=== PATIENT | female | born 1985 | race Caucasian/White ===

== ENCOUNTER 2018-05-15 17:35 | Emergency (ER) | payer OTHER, MEDICAID, SELFPAY ==
[2018-05-15 17:57] VITALS: BP 126/93; PULSE 100; RESP 18; TEMP 36.5; O2SAT 100
[2018-05-15 18:56] VITALS: BP 118/76; PULSE 92; RESP 16; TEMP 36.4; O2SAT 100
--- NOTE | 2018-05-15 19:15 | ED.FEMALEGU ---
HPI - Female Genitourinary General Chief complaint: Urogenital-Female Stated complaint: IUD STRINGS MISSING, SHARP PAIN, SOAKING PADS MORE Time Seen by Provider: 05/15/18 18:49 Source: patient Mode of arrival: ambulatory Limitations: no limitations History of Present Illness HPI Narrative: Patient is a 32-year-old female who presents with vaginal bleeding. She has an IUD and she had a small menstrual cycle last week for about 4 days. She had a 3 day break and then has had quite a heavy bleeding for the last 3 days. She has been going through more than 1 pad an hour since yesterday. She had intense pain today. She feels as though her IUD may be gone. He is also having some diarrhea which she attributes to [employer]. No vomiting. She denies any dizziness lightheadedness or shortness of breath. Related Data Home Medications Medication Instructions Recorded Confirmed aspirin 325 mg PO PRN PRN #0 07/21/17 etonogestrel-ethinyl estradiol 1 icr VAGINAL #0 07/21/17 [NuvaRing] ibuprofen 200 mg PO PRN PRN #0 07/21/17 Allergies Allergy/AdvReac Type Severity Reaction Status Date / Time Penicillins [PENICILLINS] Allergy Unknown Unverified 01/27/18 12:47 Review of Systems Review of Systems All systems reviewed & are unremarkable except as noted in HPI and below Constitutional Denies chills, Denies fever(s), Denies lethargy and Denies weakness Cardiovascular Denies chest pain, Denies syncope, Denies lightheadedness, Denies dyspnea and Denies dyspnea on exertion Respiratory Denies cough, Denies dyspnea and Denies dyspnea on exertion Gastrointestinal Gastrointestinal: Reports abdominal pain, Reports loose stools and Denies vomiting Genitourinary Reports system reviewed and no additional complaints, except as docu and Reports as per HPI Musculoskeletal Denies back pain, Denies muscle weakness, Denies numbness and Denies tingling Integumentary/Breasts Denies pruritus, Denies erythema, Denies rash and Denies wounds Neurologic Denies syncope, Denies numbness, Denies tingling and Denies weakness [facility] Social History Smoking Status: Never smoker Exam Initial Vital Signs Initial Vital Signs: Vital Signs Temperature 97.7 F 05/15/18 17:57 Pulse Rate 100 H 05/15/18 17:57 Respiratory Rate 18 05/15/18 17:57 Blood Pressure 126/93 H 05/15/18 17:57 Pulse Oximetry 100 05/15/18 17:57 Const General: cooperative and well developed Nutritional Appearance: well nourished Orientation: alert, awake, oriented x3 and not confused Chest Chest: normal inspection of the chest Resp Effort & Inspection: normal respiratory effort Auscultation: clear to auscultation bilaterally, no rales, no rhonchi and no wheezes Cardio Palpation: normal PMI Rate: regular rate Rhythm: regular rhythm Heart Sounds: S1 normal and S2 normal GI Palpation: soft, No firm, No guarding, No rigid and tender (lower abdomen) External Female Exam: external appearance normal Speculum Exam - Vagina: not erythematous, no foreign bodies, vaginal bleeding and nontender Speculum Exam - Cervix: cervical os open (No foreign body no string) and nontender Bimanual Exam- Vagina & Uterus: No cervical tenderness Bimanual Exam- Adnexa, other: normal adnexae and no adnexal masses OB/External & Speculum: no foreign bodies, cervical os open (No foreign body no string) and vaginal bleeding Course Orders Ordered: ED Orders 05/15/18 19:17 XR pelvis 1-2V Stat Vital Signs - 8 hr 05/15/18 17:57 05/15/18 18:56 05/15/18 20:18 Temperature 97.7 F 97.6 F Pulse Rate 100 H 92 H 77 Respiratory Rate 18 16 16 Blood Pressure 126/93 H Blood Pressure [Left Arm] 118/76 138/85 H Pulse Oximetry 100 100 100 MDM - Female Genitourinary Lab Data Attestation: I reviewed the patient's lab results. POC HCG neg POC UA + blood see nursing notes Imaging Data XR pelvis: Radiologist's impression: PROCEDURE: XR PELVIS 1-2V INDICATIONS: IUD placement TECHNIQUE: Single view(s) of the pelvis acquired. COMPARISON: None. FINDINGS: Bones: No fractures or dislocations. No suspicious bony lesions. Soft tissues: Visualized bowel gas pattern is normal. No suspicious soft tissue calcifications. There is no IUD visualized within the pelvis. IMPRESSION: No IUD visualized within the pelvis. Dictated by: Breanna Akers M.D. on 05/15/2018 at 19:39 MDM Narrative Medical decision making narrative: Patient's IUD is no longer visible. She thinks bleeding has actually slowed down a little bit. She has appointment with all her PCP for an IUD followup all in 2 days. The IUD was just placed in March. She is feeling better. Discharge Plan Departure Patient Disposition: Home, Self-Care Clinical Impression: Vaginal bleeding Discharge Date/Time: 05/15/18 20:23 Interventions: ED Discharge Assessment Last Done: 05/15/18 20:21 Instructions: DI for Intrauterine Device Removal Activity Restrictions/Additional Instructions: *You have been diagnosed with vaginal bleeding *What to do: Increased bleeding likely from IUD passage. The bleeding should start to slow down. *Continue to take medications as directed *Follow up with your primary care provider in 2-3 days *Return to ER if you should have persistent ongoing severe vaginal bleeding going through more than 1 pad an hour. Increased pain, lightheaded this, dizziness heart palpitations or any new, worsening or concerning symptoms Prescriptions: No Action ibuprofen 200 MG tablet 200 mg PO PRN PRNQty: 0 RF: 0 etonogestrel-ethinyl estradiol [NuvaRing] 1 EACH ring 1 icr Vaginal Qty: 0 RF: 0 aspirin 325 MG tablet 325 mg PO PRN PRNQty: 0 RF: 0 Referrals: Trena Calle ARNP [Primary Care Provider] -
[2018-05-15 20:18] VITALS: BP 138/85; PULSE 77; RESP 16; O2SAT 100
== END 2018-05-15 20:23 | disposition home or self-care (01) ==
PROVIDERS: Emergency Provider Emergency Medicine; PCP Nurse Practitioner Family
DX: N93.9 Abnormal uterine and vaginal bleeding, unspecified (principal)
CPT/HCPCS: 72170; 81003; 81025; 99282; 99284

== ENCOUNTER → 2018-05-31 11:49 | Outpatient (CLI) | payer OTHER, MEDICAID, SELFPAY ==
--- NOTE | 2018-05-31 | DI.US.S_ITS ---
PROCEDURE: US PELVIC COMPLETE INDICATIONS: PELVIC PAIN TECHNIQUE: Real-time scanning was performed of the pelvic organs, with image documentation. Additional endovaginal scanning was necessary due to incomplete visualization of the adnexal and endometrial structures by transabdominal scanning. COMPARISON: None. FINDINGS: Transabdominal scanning: Limited scanning through the kidneys shows no hydronephrosis. The kidneys measure 11.4 CM right and 12.4 CM left. No pathologic free abdominal or pelvic fluid. Endovaginal scanning: Uterus: Uterus is mildly enlarged in size at 5.0 x 6.8 x 10.1 cm. The endometrium measures 22.8 mm in combined thickness. No focal endometrial mass lesions identified, possible hyperplasia. Ovaries: Ovaries appear normal measuring 15 x 18 x 22 mm right and 19 x 27 x 33 mm left. IMPRESSION: 1. Thickened endometrium is suspect for endometrial hyperplasia. 2. Normal ovaries. Dictated by: Valerio Bailey M.D. on 05/31/2018 at 12:46 Approved by: Valerio Bailey M.D. on 05/31/2018 at 12:51
== END ==
PROVIDERS: PCP Nurse Practitioner Family; Visit Provider Nurse Practitioner Family
DX: R10.2 Pelvic and perineal pain (principal); R93.8 Abnormal findings on diagnostic imaging of other specified body structures
CPT/HCPCS: 76830; 76856

== ENCOUNTER 2018-10-11 22:04 | Emergency (ER) | payer OTHER, MEDICAID, SELFPAY ==
[2018-10-11 22:10] VITALS: BP 146/75; PULSE 102; RESP 20; TEMP 36.9; O2SAT 100
--- NOTE | 2018-10-11 22:31 | DI.RAD.S_ITS ---
PROCEDURE: XR CHEST 1V INDICATIONS: cough, back pain TECHNIQUE: One view of the chest was acquired. COMPARISON: [facility], , CHEST 1 VIEW, 06/22/2017, 12:39. FINDINGS: Surgical changes and devices: None. Lungs and pleura: No pleural effusions or pneumothorax. Lungs are clear. Mediastinum: Mediastinal contours appear normal. Heart size is normal. Bones and chest wall: No suspicious bony lesions. Overlying soft tissues appear unremarkable. IMPRESSION: No acute cardiopulmonary pathology. Dictated by: Gurpreet Thompson M.D. on 10/12/2018 at 9:20 Approved by: Gurpreet Thompson M.D. on 10/12/2018 at 9:20
[2018-10-11 22:39] VITALS: BP 129/70; PULSE 91; RESP 14; O2SAT 100
[2018-10-11 22:39] LABS: Add Manual Diff / Slide Review NO; Basophils Percent Auto 0.3 % (0-2); Eosinophils Percent Auto 1.1 % (2-4); Hematocrit 40.3 % (36-46); Hemoglobin 13.7 g/dL (12.0-16.0); Lymphocytes Percent Auto 36.9 % (25-40); Mean Corpuscular HGB Conc 33.9 % (30-36); Mean Corpuscular Hemoglobin 30.3 PG (26-34); Mean Corpuscular Volume 89.2 fL (80-100); Monocytes Percent Auto 6.9 % (3-14); Neutrophils Absolute Auto 4400 /uL (1500-7000); Neutrophils Percent Auto 54.8 % (50-75); Platelet Count 317 X10^3/uL (150-400); Red Blood Cell Count 4.51 X10^6/uL (4.0-5.2); Red Cell Distribution Width 13.8 % (11.6-14.8)
[2018-10-11 22:43] LABS: Alanine Aminotransferase 21 IU/L (9-52); Albumin 4.4 g/dL (3.5-5.0); Albumin Globulin Ratio 1.3 (1.0-2.8); Alkaline Phosphatase 85 U/L (38-126); Aspartate Aminotransferase 26 IU/L (14-36); BUN Creatinine Ratio 21.4 (6-22); Bilirubin Total 0.3 mg/dL (0.2-1.3); Blood Urea Nitrogen 15 mg/dL (7-17); Calcium 9.5 mg/dL (8.4-10.2); Carbon Dioxide 24 mmol/L (22-32); Chloride 106 mmol/L (98-107); Estimated Glomerular Filt Rate > 60.0 mL/min (>60); Globulin 3.4 g/dL (1.7-4.1); Glucose 125 mg/dL (70-100); HEMOLYSIS < 15 (0-50); Potassium 3.6 mmol/L (3.4-5.1); Sodium 144 mmol/L (137-145); Total Protein 7.8 g/dL (6.3-8.2)
[2018-10-11 22:56] LABS: Troponin I < 0.012 ng/mL (0.01-0.034)
--- NOTE | 2018-10-11 23:02 | ED_ITS ---
HPI - General Adult General Chief complaint: Extremity Injury, Upper Stated complaint: states right arm numb,cough Time Seen by Provider: 10/11/18 22:43 Source: patient Mode of arrival: ambulatory Limitations: no limitations History of Present Illness HPI narrative: This is a 33-year-old female comes to the emergency department with complaint of is not feeling well for the last 3 days. She has felt just sort of under the weather, she has had mild cough that is been nonproductive. She has not really had any chest pain or pressure or shortness of breath. She has felt some discomfort kind of in her back and radiating down her left arm more to the shoulder. It does not really go all the way down her arm. No weakness or numbness. Patient has not really had a lot of nasal congestion or sinus pressure. She has felt a little nauseated but not had any vomiting. No diarrhea or constipation, no new urinary symptoms no urgency frequency or dysuria. No vaginal bleeding or discharge. She states a couple days ago she had some pain in her pelvic area but none today. Patient states she does not have any other medical issues other than a dermoid cyst. She is supposed to follow up with Dr. Silva to have this removed. She has had her gallbladder out. Patient denies any illicit drugs. She does state, occasional alcohol. She has had a recent sick contact to have a viral bronchitis. Related Data Home Medications Medication Instructions Recorded Confirmed aspirin 325 mg PO PRN PRN #0 07/21/17 etonogestrel-ethinyl estradiol 1 icr VAGINAL #0 07/21/17 [NuvaRing] ibuprofen 200 mg PO PRN PRN #0 07/21/17 Allergies Allergy/AdvReac Type Severity Reaction Status Date / Time Penicillins [PENICILLINS] Allergy Unknown Unverified 01/27/18 12:47 Review of Systems Review of Systems All systems reviewed & are unremarkable except as noted in HPI and below Constitutional Denies chills, Reports fatigue, Denies fever(s), Denies headache(s), Denies lethargy, Denies night sweats and Denies weakness ENT Ears, Nose, Mouth, and Throat: Reports as per HPI, Denies facial pain, Denies headache(s), Denies nasal congestion, Denies neck pain, Denies post nasal drip, Denies sinus pain, Denies sinus pressure and Denies sore throat Cardiovascular Denies chest pain, Denies diaphoresis, Denies syncope, Denies pedal edema, Denies edema, Denies irregular heart rhythm, Denies leg edema, Reports lightheadedness, Denies palpitations, Denies dyspnea, Denies dyspnea on exertion and Denies orthopnea Respiratory Denies change in phlegm color, Denies chest congestion, Reports cough, Denies hemoptysis, Denies excessive phlegm production, Denies pain on inspiration, Denies dyspnea, Denies dyspnea on exertion, Denies stridor and Denies wheezing Gastrointestinal Gastrointestinal: Denies abdominal pain, Denies change in bowel habits, Denies constipation, Denies diarrhea, Denies nausea and Denies vomiting Genitourinary Denies hematuria, Denies dysuria, Denies flank pain, Denies urinary incontinence and Denies urinary urgency Musculoskeletal Denies neck pain Integumentary/Breasts Denies rash Neurologic Denies syncope, Denies headache(s) and Denies weakness Endocrine Reports fatigue and Denies palpitations Allergic/Immunologic Denies wheezing PFSH Medical History Dermoid (Acute) Social History Smoking Status: Never smoker Exam Narrative Exam Narrative: GEN: Obese female, alert and oriented x 3, patient appears to be in mild distress. HEENT: Atraumatic, pupils are equal round reactive to light, extraocular movements are intact, nares are clear, TMs are clear with no fluid, there is no conjunctival pallor. Throat is clear without any exudates, erythema, tonsillar enlargement or uvular deviation HEART: Regular rate and rhythm without murmur, clicks, rubs. LUNGS:Lungs clear to auscultation, no wheezes, rales, crackles, chest moves symmetrically. Patient has some mild cough throughout evaluation and with deep inhalation. ABD:bowel sounds normal, soft, non-tender, no guarding, rebound, rigidity, no masses noted, no hepatosplenomegaly :No CVA tenderness MSCL: Non-tender, no muscle atrophy, muscles strength 5/5 upper and lower extremities, full range of motion. NEURO:CN 2-12 intact, sensation normal Initial Vital Signs Initial Vital Signs: Vital Signs Temperature 98.4 F 10/11/18 22:10 Pulse Rate 102 H 10/11/18 22:10 Respiratory Rate 20 10/11/18 22:10 Blood Pressure 146/75 H 10/11/18 22:10 Pulse Oximetry 100 10/11/18 22:10 Course Orders Ordered: ED Orders 10/11/18 22:09 EKG-12 Lead Stat 10/11/18 22:31 Chest [XR chest 1V] Stat 10/11/18 22:34 CBC [Complete Blood Count AUTO DIFF] Stat CMP [Comprehensive Metabolic Panel] Stat Trop I [Troponin I] Stat Discontinued Medications Sodium Chloride (Normal Saline 0.9%) 1,000 mls @ 1,000 mls/hr IV BOLUS ONE Stop: 10/12/18 00:05 Last Infusion: 10/12/18 00:07 Dose: 0 mls/hr Admin: 10/11/18 23:09 Dose: 1,000 mls/hr Vital Signs - 8 hr 10/11/18 22:10 10/11/18 22:39 10/11/18 23:58 Temperature 98.4 F Pulse Rate 102 H 91 H 82 Respiratory Rate 20 14 22 Blood Pressure 146/75 H Blood Pressure [Left Arm] 129/70 103/64 Pulse Oximetry 100 100 99 Medical Decision Making Lab Data Lab results reviewed: Yes I reviewed the patient's lab results. Result diagrams: 10/11/18 22:34 10/11/18 22:34 Lab Results 10/11/18 10/11/18 Range/Units 22:34 22:34 WBC 8.0 (4.5-11.0) X10^3/uL RBC 4.51 (4.0-5.2) X10^6/uL Hgb 13.7 (12.0-16.0) g/dL Hct 40.3 (36-46) % MCV 89.2 (80-100) fL MCH 30.3 (26-34) PG MCHC 33.9 (30-36) % RDW 13.8 (11.6-14.8) % Plt Count 317 (150-400) X10^3/uL Neut % (Auto) 54.8 (50-75) % Lymph % (Auto) 36.9 (25-40) % Wright % (Auto) 6.9 (3-14) % Eos % (Auto) 1.1 L (2-4) % Baso % (Auto) 0.3 (0-2) % Neut # (Auto) 4400 (1889-0450) /uL Sodium 144 (137-145) mmol/L Potassium 3.6 (3.4-5.1) mmol/L Chloride 106 (98-107) mmol/L Carbon Dioxide 24 (22-32) mmol/L BUN 15 (7-17) mg/dL Creatinine 0.70 (0.52-1.04) mg/dL Estimated GFR > 60.0 (>60) mL/min BUN/Creatinine Ratio 21.4 (6-22) Glucose 125 H (70-100) mg/dL Calcium 9.5 (8.4-10.2) mg/dL Total Bilirubin 0.3 (0.2-1.3) mg/dL AST 26 (14-36) IU/L ALT 21 (9-52) IU/L Alkaline Phosphatase 85 (38-126) U/L Troponin I < 0.012 (0.01-0.034) ng/mL Total Protein 7.8 (6.3-8.2) g/dL Albumin 4.4 (3.5-5.0) g/dL Globulin 3.4 (1.7-4.1) g/dL Albumin/Globulin Ratio 1.3 (1.0-2.8) Point of Care Testing Test Results Negative Urine Dip Bedside Urine Glucose Negative Bedside Urine Bilirubin - Negative Bedside Urine Ketone - Negative Urine Specific Commerce 1.020 Bedside Urine Occult Blood - Negative Bedside Urine pH 6.0 Bedside Urine Protein - Negative Bedside Urine Urobilinogen - Negative Bedside Urine Nitrite - Negative Bedside Urine Leukocytes - Negative Esterase Point of care testing: Point of Care Testing Test Results Negative Urine Dip Bedside Urine Glucose Negative Bedside Urine Bilirubin - Negative Bedside Urine Ketone - Negative Urine Specific Commerce 1.020 Bedside Urine Occult Blood - Negative Bedside Urine pH 6.0 Bedside Urine Protein - Negative Bedside Urine Urobilinogen - Negative Bedside Urine Nitrite - Negative Bedside Urine Leukocytes - Negative Esterase Imaging Data Chest x-ray: Attestation: I personally reviewed and interpreted this imaging study as follows: My impression: No acute process, no infiltrate, no pulmonary edema. Normal alignment, no mediastinal widening. No pneumothorax. No fracture. ECG Data Attestation: I personally reviewed and interpreted this ECG as follows: Interpretation: Sinus rhythm with a rate of 95 P are interval of 142, QRS of 106 and QTC of 408. No significant ST changes appreciated MDM Narrative Medical decision making narrative: Patient has had some thoracic discomfort and left upper extremity discomfort. This started about 10:00 a.m. today and by time patient at present and she had almost 12 hr of constant symptoms. Patient' s EKG does not show any clear changes nor does her troponin. She has had a cough recently which I suspect she has a little bit of upper respiratory infection. Patient has not had any fevers, is likely viral in origin. This may or may not be related to the thoracic discomfort. Patient's lab work otherwise is fairly normal. No signs of . An urine does not show any signs of infection. Discussed findings with patient. She had some ibuprofen over the counter which was helpful for her symptoms. She can continue this. She is in between physicians and has a follow-up appointment set up but encouraged to call for earlier follow-up if symptoms are not resolved or return to the ER for re-evaluation. Discharge Plan Departure Patient Disposition: Home Clinical Impression: Back pain, thoracic, Cough, URI (upper respiratory infection) Discharge Date/Time: 10/12/18 00:14 Interventions: ED Discharge Assessment Last Done: 10/12/18 00:15 Instructions: DI for Thoracic Back Pain Activity Restrictions/Additional Instructions: Call to set up primary care follow-up in the next week if her symptoms are not improving. You may take Tylenol and/or ibuprofen as needed for discomfort in the back and arm. You may use [id number] cough medicine as needed. Return to the emergency department for fevers greater than 100.4, shortness of breath, chest pain or pressure, passing out, persistent vomiting, black or bloody stools or other new or concerning symptoms. Prescriptions: No Action ibuprofen 200 MG tablet 200 mg PO PRN PRNQty: 0 RF: 0 etonogestrel-ethinyl estradiol [NuvaRing] 1 EACH ring 1 icr Vaginal Qty: 0 RF: 0 aspirin 325 MG tablet 325 mg PO PRN PRNQty: 0 RF: 0 Referrals: Trena Calle ARNP [Primary Care Provider] -
[2018-10-11] MEDS: SODIUM CHLORIDE 0.9% 1,000 ML 1000 ML IV (23:09)
[2018-10-11 23:58] VITALS: BP 103/64; PULSE 82; RESP 22; O2SAT 99
== END 2018-10-12 00:14 | disposition home or self-care (01) ==
PROVIDERS: Emergency Provider Emergency Medicine; PCP Nurse Practitioner Family
DX: M54.6 Pain in thoracic spine (principal); J06.9 Acute upper respiratory infection, unspecified; R05 Cough
CPT/HCPCS: 71045; 80053; 81003; 81025; 84484; 85025; 93005; 96360; 99283; 99285

== ENCOUNTER 2018-10-17 01:44 | Emergency (ER) | payer OTHER, MEDICAID, SELFPAY ==
[2018-10-17 02:12] VITALS: BP 130/77; PULSE 89; RESP 18; TEMP 36.9; O2SAT 99
[2018-10-17 03:05] LABS: BUN Creatinine Ratio 13.8 (6-22); Blood Urea Nitrogen 11 mg/dL (7-17); Calcium 9.3 mg/dL (8.4-10.2); Carbon Dioxide 25 mmol/L (22-32); Chloride 105 mmol/L (98-107); Estimated Glomerular Filt Rate > 60.0 mL/min (>60); Glucose 118 mg/dL (70-100); HEMOLYSIS < 15 (0-50); Potassium 4.2 mmol/L (3.4-5.1); Sodium 140 mmol/L (137-145)
[2018-10-17] MEDS: CYCLOBENZAPRINE 10 MG PREPACK 1 BOTTLE MISC (03:20)
--- NOTE | 2018-10-17 03:21 | ED_ITS ---
HPI - Extremity Problem General Chief complaint: Extremity Problem,Nontraumatic Stated complaint: right thigh pain, waking her up Time Seen by Provider: 10/17/18 02:02 Source: patient and family Mode of arrival: ambulatory History of Present Illness HPI Narrative: 33-year-old female, nonsmoker presents to the emergency department with a chief complaint of episodes of right anterior thigh spasm over the course of the evening. She spent a significant time playing video games with her kids and noted this spasming. She denies any injury. She denies any provocation or palliation of her pain. She denies radiation. She denies any history of the same. She denies any recent illness. MD Complaint: extremity swelling Onset (ago): hour(s) Pain Consistency: intermittent Location: right Quality: stabbing Radiation: none Relieving factors: nothing Exacerbating factors: nothing Associated symptoms: denies other symptoms Related Data Home Medications Medication Instructions Recorded Confirmed aspirin 325 mg PO PRN PRN #0 07/21/17 etonogestrel-ethinyl estradiol 1 icr VAGINAL #0 07/21/17 [NuvaRing] ibuprofen 200 mg PO PRN PRN #0 07/21/17 Previous Rx's Medication Instructions Recorded cyclobenzaprine 10 mg PO TID PRN #14 tab 10/17/18 Allergies Allergy/AdvReac Type Severity Reaction Status Date / Time Penicillins [PENICILLINS] Allergy Unknown Unverified 01/27/18 12:47 Review of Systems Review of Systems All systems reviewed & are unremarkable except as noted in HPI and below Constitutional Denies chills, Denies fever(s), Denies lethargy and Denies weakness Eyes Denies change in vision, Denies eye discharge, Denies irritation and Denies loss of vision ENT Ears, Nose, Mouth, and Throat: Denies change in voice, Denies neck pain and Denies sore throat Cardiovascular Denies chest pain, Denies irregular heart rhythm, Denies lightheadedness, Denies palpitations, Denies dyspnea, Denies dyspnea on exertion and Denies orthopnea Respiratory Denies cough, Denies dyspnea, Denies dyspnea on exertion and Denies wheezing Gastrointestinal Gastrointestinal: Denies abdominal pain, Denies change in bowel habits, Denies diarrhea, Denies nausea and Denies vomiting Genitourinary Denies hematuria, Denies flank pain, Denies urinary incontinence and Denies urinary urgency Musculoskeletal Reports muscle cramps and Denies neck pain Integumentary/Breasts Denies pruritus, Denies erythema, Denies rash and Denies wounds Neurologic Denies confusion, Denies loss of vision and Denies weakness Psychiatric Denies anxiety, Denies confusion, Denies depression, Denies homicidal ideation and Denies suicidal ideation Endocrine Denies palpitations Hematologic/Lymphatic Denies easy bruising Allergic/Immunologic Denies wheezing PFSH Medical History Dermoid (Acute) Social History Smoking Status: Never smoker Exam Narrative Exam Narrative: GEN: AOx3 and in mild distress EYES: Pupils are equal, round, and reactive to light and accommodation. Extraoccular muscles are intact bilaterally. There is no subconjunctival hemorrhage or exudate. CHEST: Lungs are clear to auscultation bilaterally and free of wheezes, rales, or rhonchi. Heart rate is regular rhythm, there are no murmurs, clicks, rubs, or gallops. There is no chest wall tenderness. ABD: Abdomen is soft and nontender. There is no guarding or rebound. Bowel sounds are normal in all 4 quadrants. There is no mass or organomegaly. EXT: No swelling, erythema, warmth. Full painless ROM of all extremities with no loss of sensation or strength. SKIN: Warm, pink, and dry. No erythema or rash Initial Vital Signs Initial Vital Signs: Vital Signs Temperature 98.4 F 10/17/18 02:12 Pulse Rate 89 10/17/18 02:12 Respiratory Rate 18 10/17/18 02:12 Blood Pressure 130/77 10/17/18 02:12 Pulse Oximetry 99 10/17/18 02:12 Course Orders Ordered: ED Orders 10/17/18 02:44 Basic Metabolic Panel Stat Discontinued Medications Cyclobenzaprine HCl (Flexeril 10 Mg Prepack) 1 bottle MISC SEEINSTR ONE Stop: 10/17/18 03:12 Last Admin: 10/17/18 03:20 Dose: 1 bottle Vital Signs - 8 hr 10/17/18 02:12 10/17/18 03:25 Temperature 98.4 F Pulse Rate 89 92 H Respiratory Rate 18 18 Blood Pressure 130/77 128/73 Pulse Oximetry 99 98 MDM - Extremity (Nontraumatic) Lab Data Result diagrams: 10/17/18 02:44 Lab Results 10/17/18 Range/Units 02:44 Sodium 140 (137-145) mmol/L Potassium 4.2 (3.4-5.1) mmol/L Chloride 105 (98-107) mmol/L Carbon Dioxide 25 (22-32) mmol/L BUN 11 (7-17) mg/dL Creatinine 0.80 (0.52-1.04) mg/dL Estimated GFR > 60.0 (>60) mL/min BUN/Creatinine Ratio 13.8 (6-22) Glucose 118 H (70-100) mg/dL Calcium 9.3 (8.4-10.2) mg/dL [facility] Narrative Medical decision making narrative: DVT considered but thought less likely given lack of warmth, swelling, erythema or persistence Cellulitis considered but thought less likely given lack of warmth, swelling, erythema or persistence. Medication reaction considered but thought less likely given lack of persistent findings with her current medications Discharge Plan Departure Patient Disposition: Home Clinical Impression: Acute leg pain Discharge Date/Time: 10/17/18 03:25 Interventions: ED Discharge Assessment Last Done: 10/17/18 03:25 Instructions: DI for Leg Pain Activity Restrictions/Additional Instructions: *You have been diagnosed with [ right thigh spasm ] *What to do: *Take medications as directed *Follow up with your primary care provider in 2-3 days, call for an appointment. Let them know you were seen in the Emergency Department and that we ask that you be seen in follow up *Return to ER if you should have any new, worsening or concerning symptoms Prescriptions: New cyclobenzaprine 10 mg tablet 10 mg PO TID PRN (Reason: muscle spasm) Qty: 14 RF: 0 No Action ibuprofen 200 MG tablet 200 mg PO PRN PRNQty: 0 RF: 0 etonogestrel-ethinyl estradiol [NuvaRing] 1 EACH ring 1 icr Vaginal Qty: 0 RF: 0 aspirin 325 MG tablet 325 mg PO PRN PRNQty: 0 RF: 0 Referrals: Trena Calle ARNP [Primary Care Provider] -
[2018-10-17 03:25] VITALS: BP 128/73; PULSE 92; RESP 18; O2SAT 98
== END 2018-10-17 03:25 | disposition home or self-care (01) ==
PROVIDERS: Emergency Provider Emergency Medicine; PCP Nurse Practitioner Family
DX: M79.651 Pain in right thigh (principal)
CPT/HCPCS: 36415; 80048; 99282; 99283

== ENCOUNTER 2018-11-27 22:49 | Emergency (ER) | payer OTHER, MEDICAID, SELFPAY ==
[2018-11-27 22:54] VITALS: BP 147/92; PULSE 108; RESP 15; TEMP 36.7; O2SAT 99
--- NOTE | 2018-11-27 22:57 | ED_ITS ---
HPI - Nausea/Vomiting/Diarrhea General Chief complaint: Nausea/Vomiting/Diarrhea Stated complaint: nausea and dizziness Time Seen by Provider: 11/27/18 22:52 Source: patient Mode of arrival: ambulatory Limitations: no limitations History of Present Illness HPI Narrative: 33-year-old female here for evaluation of multiple complaints. She states that approximately 1 hr prior to arrival she started getting some vision changes which she states is which she feels like before she gets a migraine headache. She states that she then started to become very nauseous does have tingling on the left side of her face the left side of her arm. She also states this is what happens when she gets the headache. She did take an ibuprofen prior to arrival. It has been several months since she has had a headache. She is not complaining of a headache currently. Related Data Home Medications Medication Instructions Recorded Confirmed ibuprofen 200 mg PO PRN PRN #0 07/21/17 etonogestrel 68 mg subdermal SUBDERMAL each 11/09/18 11/09/18 implant Allergies Allergy/AdvReac Type Severity Reaction Status Date / Time Penicillins [PENICILLINS] Allergy Unknown Unverified 01/27/18 12:47 Review of Systems Constitutional Denies fever(s) and Denies headache(s) Eyes Reports change in vision and Denies diplopia ENT Ears, Nose, Mouth, and Throat: Denies headache(s), Denies sore throat and Denies throat swelling Cardiovascular Denies chest pain and Denies dyspnea Respiratory Denies dyspnea Gastrointestinal Gastrointestinal: Denies abdominal pain, Denies change in stool character, Reports nausea and Denies vomiting Musculoskeletal Denies myalgias, Denies arthralgias and Reports tingling Integumentary/Breasts Denies rash Neurologic Denies headache(s) and Reports tingling Hematologic/Lymphatic Denies easy bleeding and Denies easy bruising Allergic/Immunologic Denies throat swelling PFSH Medical History Migraine headache (Acute) Dermoid (Acute) Surgical History Hx laparoscopic cholecystectomy (Resolved) Social History Smoking Status: Never smoker Social History Smoking Status: Never smoker Exam Initial Vital Signs Initial Vital Signs: Vital Signs Temperature 98.1 F 11/27/18 22:54 Pulse Rate 108 H 11/27/18 22:54 Respiratory Rate 15 11/27/18 22:54 Blood Pressure 147/92 H 11/27/18 22:54 Pulse Oximetry 99 11/27/18 22:54 Const General: cooperative, healthy appearing, well developed, well groomed and No acute distress Orientation: alert, awake and oriented x3 HENMT Head: normal to inspection, normocephalic and atraumatic Ears: hearing grossly normal bilaterally Nose: external nose normal Face and sinus: normal facial exam Mouth: oral mucosae normal Eyes Pupils: PERRL EOM: EOM intact bilaterally Resp Effort & Inspection: normal respiratory effort Auscultation: clear to auscultation bilaterally Cardio Rate: tachycardic Rhythm: regular rhythm Pulses: radial pulses present GI Inspection: non-distended Palpation: soft, No firm, No guarding and No tender Skin Lesions: no lesions Rashes: no rashes Neuro Other: Cranial nerves intact except for tingling to the left side of her face in her left arm. Extrem General: normal to inspection and capillary refill normal Psych Appearance: grossly normal and well kempt Course Orders Ordered: ED Orders 11/27/18 23:15 Basic Metabolic Panel Stat Complete Blood Count AUTO DIFF Stat Test Serum,Qual Stat Discontinued Medications Sodium Chloride (Normal Saline 0.9%) 1,000 mls @ 1,000 mls/hr IV BOLUS ONE Stop: 11/28/18 00:03 Last Admin: 11/27/18 23:22 Dose: 1,000 mls/hr Ondansetron HCl (Zofran) 4 mg IV NOW ONE Stop: 11/27/18 23:05 Last Admin: 11/27/18 23:22 Dose: 4 mg Ondansetron HCl (Zofran Odt Prepack) 1 bottle MISC SEEINSTR ONE Stop: 11/28/18 00:36 Sumatriptan Succinate (Imitrex) 20 mg NASAL NOW ONE Stop: 11/27/18 23:05 Last Admin: 11/27/18 23:28 Dose: Not Given Sumatriptan Succinate (Imitrex) 6 mg SUBCUT NOW ONE Stop: 11/27/18 23:26 Last Admin: 11/27/18 23:29 Dose: 6 mg Vital Signs - 8 hr 11/27/18 22:54 11/27/18 23:30 11/28/18 00:00 Temperature 98.1 F Pulse Rate 108 H 94 H 88 Respiratory Rate 15 Blood Pressure 147/92 H Blood Pressure [Left Arm] 134/70 124/72 Pulse Oximetry 99 99 100 MDM - Nausea/Vomiting/Diarrhea Lab Data Attestation: I reviewed the patient's lab results. Result diagrams: 11/27/18 23:15 11/27/18 23:15 Lab Results 11/27/18 11/27/18 11/27/18 Range/Units 23:15 23:15 23:15 WBC 10.1 (4.5-11.0) X10^3/uL RBC 4.67 (4.0-5.2) X10^6/uL Hgb 14.0 (12.0-16.0) g/dL Hct 41.7 (36-46) % MCV 89.3 (80-100) fL MCH 29.9 (26-34) PG MCHC 33.5 (30-36) % RDW 13.3 (11.6-14.8) % Plt Count 286 (150-400) X10^3/uL Neut % (Auto) 63.2 (50-75) % Lymph % (Auto) 29.0 (25-40) % [place] % (Auto) 6.1 (3-14) % Eos % (Auto) 1.3 L (2-4) % Baso % (Auto) 0.4 (0-2) % Neut # (Auto) 6400 (4723-3393) /uL Lymph # (Auto) 2900 (9150-9537) /uL [place] # (Auto) 600 (0-900) /uL Eos # (Auto) 100 (0-450) /uL Baso # (Auto) 0 (0-100) /uL Sodium 140 (137-145) mmol/L Potassium 4.0 (3.4-5.1) mmol/L Chloride 104 (98-107) mmol/L Carbon Dioxide 25 (22-32) mmol/L BUN 12 (7-17) mg/dL Creatinine 0.80 (0.52-1.04) mg/dL Estimated GFR > 60.0 (>60) mL/min BUN/Creatinine Ratio 15.0 (6-22) Glucose 128 H (70-100) mg/dL Calcium 9.3 (8.4-10.2) mg/dL Serum , Qual Negative (Negative) MDM Narrative Medical decision making narrative: Patient reported almost complete resolution of her symptoms after the Zofran the fluids in the Imitrex. I suspect that her symptoms were the aura for her typical migraines. Hold on further workup for now. Patient was given return precautions. She expressed understanding and agreement with plan. Discharge Plan Departure Patient Disposition: Home Clinical Impression: Nausea, Facial paresthesia Instructions: DI for Nausea -- Adult Activity Restrictions/Additional Instructions: Take nausea medication as needed. Contact your primary care doctor on Thursday for follow-up. Return to the emergency department for any new or worsening symptoms Prescriptions: No Action ibuprofen 200 MG tablet 200 mg PO PRN PRNQty: 0 RF: 0 etonogestrel [Nexplanon] 68 mg implant Subdermal RF: 0 Referrals: Trena Calle ARNP [Primary Care Provider] -
[2018-11-27] MEDS: SODIUM CHLORIDE 0.9% 1,000 ML 1000 ML IV (23:22)
[2018-11-27] MEDS: ONDANSETRON 4 MG/2 ML INJ IV (23:22)
[2018-11-27] MEDS: SUMAtriptan 6 MG/0.5 ML VIAL SUBCUT (23:29)
[2018-11-27 23:30] VITALS: BP 134/70; PULSE 94; O2SAT 99
[2018-11-27 23:39] LABS: Blood Urea Nitrogen 12 mg/dL (7-17); Calcium 9.3 mg/dL (8.4-10.2); Carbon Dioxide 25 mmol/L (22-32); Chloride 104 mmol/L (98-107); Estimated Glomerular Filt Rate > 60.0 mL/min (>60); Glucose 128 mg/dL (70-100); HEMOLYSIS < 15 (0-50); Sodium 140 mmol/L (137-145)
[2018-11-27 23:42] LABS: Add Manual Diff / Slide Review NO; Basophils Absolute Auto 0 /uL (0-100); Basophils Percent Auto 0.4 % (0-2); Eosinophils Absolute Auto 100 /uL (0-450); Eosinophils Percent Auto 1.3 % (2-4); Hematocrit 41.7 % (36-46); Lymphocytes Absolute Auto 2900 /uL (1100-4500); Mean Corpuscular HGB Conc 33.5 % (30-36); Mean Corpuscular Hemoglobin 29.9 PG (26-34); Mean Corpuscular Volume 89.3 fL (80-100); Monocytes Absolute Auto 600 /uL (0-900); Monocytes Percent Auto 6.1 % (3-14); Neutrophils Absolute Auto 6400 /uL (1500-7000); Neutrophils Percent Auto 63.2 % (50-75); Platelet Count 286 X10^3/uL (150-400); Red Blood Cell Count 4.67 X10^6/uL (4.0-5.2); Red Cell Distribution Width 13.3 % (11.6-14.8); White Blood Cell Count 10.1 X10^3/uL (4.5-11.0)
[2018-11-27 23:44] LABS: Pregnancy Test Serum,Qual Negative (Negative)
[2018-11-28] VITALS: BP 124/72; PULSE 88; O2SAT 100
[2018-11-28 00:49] VITALS: BP 123/68; PULSE 87; RESP 14; O2SAT 100
== END 2018-11-28 00:51 | disposition home or self-care (01) ==
PROVIDERS: Emergency Provider Emergency Medicine; PCP Nurse Practitioner Family
DX: R11.0 Nausea (principal); R20.9 Unspecified disturbances of skin sensation
CPT/HCPCS: 36591; 80048; 84703; 85025; 96361; 96374; 99283; 99284; J2405; J3030

== ENCOUNTER 2018-12-13 07:58 | Emergency (ER) | payer OTHER, MEDICAID, SELFPAY ==
[2018-12-13 08:08] VITALS: BP 142/87; PULSE 105; RESP 18; TEMP 36.7; O2SAT 100
--- NOTE | 2018-12-13 08:13 | DI.RAD.S_ITS ---
PROCEDURE: XR CHEST 1V INDICATIONS: chest pain TECHNIQUE: One view of the chest was acquired. COMPARISON: [facility], , CHEST 1 VIEW, 06/22/2017, 12:39. [facility], , XR CHEST 1V, 10/11/2018, 22:55. FINDINGS: Surgical changes and devices: None. Lungs and pleura: On this semiupright portable chest examination, no large pneumothorax or large pleural effusions are seen. No focal infiltrates are seen. Mediastinum: Mediastinal contours appear normal. Heart size is normal. Bones and chest wall: No suspicious bony lesions. Age-appropriate bony degenerative changes are seen. Mild levoconvex scoliotic curvature is noted. Overlying soft tissues appear unremarkable. IMPRESSION: Portable chest within normal limits. Dictated by: Martín Ramirez M.D. on 12/13/2018 at 7:30 Approved by: Martín Ramirez M.D. on 12/13/2018 at 7:31
--- NOTE | 2018-12-13 08:15 | ED.EXTPRO ---
HPI - Extremity Problem General Chief complaint: Extremity Problem,Nontraumatic Stated complaint: left elbow pain/chest discomfort Time Seen by Provider: 12/13/18 08:02 Source: patient Mode of arrival: ambulatory Limitations: no limitations History of Present Illness HPI Narrative: patient is a 33-year-old female who presents with variety of complaints. She is having left elbow pain amalia for the last week progressively getting worse. She denies any injury. She is right-hand dominant. She has numbness and tingling in the ulnar distribution. It does with movement. No weakness. This morning she woke up with chest discomfort. She said around 3:00 a.m. she had some chest discomfort lasted for about 3 hr intermittently. Does seem to be was slightly worse with exertion. Overall little bit better now. Denies any fever or cough no shortness of breath at rest no heart palpitations. MD Complaint: extremity pain ( Left elbow) Location: left and upper extremity Quality: burning Related Data Home Medications Medication Instructions Recorded Confirmed ibuprofen 800 mg PO PRN PRN #0 07/21/17 12/13/18 etonogestrel 68 mg subdermal SUBDERMAL each 11/09/18 11/09/18 implant Allergies Allergy/AdvReac Type Severity Reaction Status Date / Time Penicillins [PENICILLINS] Allergy Severe Anaphylaxis Verified 12/13/18 08:13 Review of Systems Review of Systems ROS Unobtainable: All systems reviewed & are unremarkable except as noted in HPI and below Constitutional Denies chills, Denies fever(s), Denies lethargy and Denies weakness Eyes Denies change in vision, Denies eye discharge, Denies irritation and Denies loss of vision ENT Ears, Nose, Mouth, and Throat: Denies change in voice, Denies neck pain and Denies sore throat Cardiovascular Reports chest pain, Denies dyspnea and Denies dyspnea on exertion Respiratory Denies cough, Denies dyspnea, Denies dyspnea on exertion and Denies wheezing Gastrointestinal Gastrointestinal: Denies abdominal pain, Denies change in bowel habits, Denies diarrhea, Denies nausea and Denies vomiting Musculoskeletal Reports as per HPI, Reports arthralgias, Denies neck pain and Reports radiating pain into limb (to middle ring and pinky fingers on left) Integumentary/Breasts Denies pruritus, Denies erythema, Denies rash and Denies wounds Neurologic Denies loss of vision and Denies weakness Allergic/Immunologic Denies wheezing [facility] Medical History Dermoid (Acute) Migraine headache (Acute) Surgical History Hx laparoscopic cholecystectomy (Resolved) Social History Smoking Status: Never smoker Social History Smoking Status: Never smoker Exam Initial Vital Signs Initial Vital Signs: Vital Signs Temperature 98.0 F 12/13/18 08:08 Pulse Rate 105 H 12/13/18 08:08 Respiratory Rate 18 12/13/18 08:08 Blood Pressure 142/87 H 12/13/18 08:08 Pulse Oximetry 100 12/13/18 08:08 GENERAL: Alert well-appearing female no acute distress HEENT: Head atraumatic,EOMI, pupils reactive, face symmetric, CARDIOVASCULAR: Regular rate and rhythm without murmurs, rubs or gallops. RESPIRATORY: Breath sounds equal bilaterally, no wheezes rales or rhonchi. ABDOMEN: Soft, nontender. Normoactive bowel sounds all 4 quadrants. No guarding or rebound. EXTREMITIES: Normal range of motion, no clubbing or edema. Neurovascularly intact left upper extremity palpated medial epicondyle painful. Painful with supination and pronation. Neurovascularly intact. Of good wrist flexion and extension. NEUROLOGICAL: Alert and oriented x4.Normal gait and speech. SKIN: Warm, dry, no laceration, no petechiae, no rashes or lesions. Scores HEART Score Heart Score history: Slightly Suspicious Heart Score EKG: Normal Heart Score Age: < 45 years old Heart Score risk factors: No known risk factors Heart Score troponin: < or = to normal limit Heart Score Total: 0 PERC Score Age greater than or equal to 50 years: No Heart rate greater than or equal to 100 bpm: No Room Air O2 Sat less than 95%: No Unilateral leg swelling: No Recent trauma or surgery: No Hemoptysis: No Prior PE or DVT: No Hormone Use: No Total PERC Score: 0 Course Orders Ordered: Discontinued Medications Ketorolac Tromethamine (Toradol) 30 mg IV NOW ONE Stop: 12/13/18 08:14 Last Admin: 12/13/18 08:26 Dose: 30 mg Pantoprazole Sodium (Protonix) 40 mg IV NOW ONE Stop: 12/13/18 08:14 Last Admin: 12/13/18 08:26 Dose: 40 mg Vital Signs - 8 hr 12/13/18 08:08 Temperature 98.0 F Pulse Rate 105 H Respiratory Rate 18 Blood Pressure 142/87 H Pulse Oximetry 100 MDM - Extremity (Nontraumatic) Lab Data Result diagrams: 12/13/18 08:20 12/13/18 08:20 Lab Results 12/13/18 12/13/18 Range/Units 08:20 08:20 WBC 5.9 (4.5-11.0) X10^3/uL RBC 4.66 (4.0-5.2) X10^6/uL Hgb 14.1 (12.0-16.0) g/dL Hct 41.4 (36-46) % MCV 88.9 (80-100) fL MCH 30.2 (26-34) PG MCHC 34.0 (30-36) % RDW 13.0 (11.6-14.8) % Plt Count 237 (150-400) X10^3/uL Neut % (Auto) 68.0 (50-75) % Lymph % (Auto) 26.3 (25-40) % Yell % (Auto) 4.8 (3-14) % Eos % (Auto) 0.5 L (2-4) % Baso % (Auto) 0.4 (0-2) % Neut # (Auto) 4000 (2836-5426) /uL Lymph # (Auto) 1600 (7565-3647) /uL Yell # (Auto) 300 (0-900) /uL Eos # (Auto) 0 (0-450) /uL Baso # (Auto) 0 (0-100) /uL Sodium 141 (137-145) mmol/L Potassium 3.6 (3.4-5.1) mmol/L Chloride 107 (98-107) mmol/L Carbon Dioxide 23 (22-32) mmol/L BUN 15 (7-17) mg/dL Creatinine 0.80 (0.52-1.04) mg/dL Estimated GFR > 60.0 (>60) mL/min BUN/Creatinine Ratio 18.8 (6-22) Glucose 117 H (70-100) mg/dL Calcium 9.2 (8.4-10.2) mg/dL Total Bilirubin 0.6 (0.2-1.3) mg/dL AST 18 (14-36) IU/L ALT 31 (9-52) IU/L Alkaline Phosphatase 104 (38-126) U/L Total Creatine Kinase 69 (30-135) U/L CK-MB (CK-2) TNP CK-MB (CK-2) Rel Index TNP Troponin I < 0.012 (0.01-0.034) ng/mL Total Protein 7.8 (6.3-8.2) g/dL Albumin 4.4 (3.5-5.0) g/dL Globulin 3.4 (1.7-4.1) g/dL Albumin/Globulin Ratio 1.3 (1.0-2.8) Lipase 68 (23-300) U/L Imaging Data Chest x-ray: Radiologist's impression: [address] [address] XRay Report Signed Patient: Sabrina Sanchez CMR#: [id number] : 1985Acct:[id number] Age/Sex: 33 / FDate of Service: 12/13/18 Loc: ED Accession Number: [id number] Procedure: XR chest 1V Ordering Provider: Karo Peace D.O. PROCEDURE: XR CHEST 1V INDICATIONS: chest pain TECHNIQUE: One view of the chest was acquired. COMPARISON: [facility], CHEST 1 VIEW, 06/22/2017, 12:39. [facility], XR CHEST 1V, 10/11/2018, 22:55. FINDINGS: Surgical changes and devices: None. Lungs and pleura: On this semiupright portable chest examination, no large pneumothorax or large pleural effusions are seen. No focal infiltrates are seen. Mediastinum: Mediastinal contours appear normal. Heart size is normal. Bones and chest wall: No suspicious bony lesions. Age-appropriate bony degenerative changes are seen. Mild levoconvex scoliotic curvature is noted. Overlying soft tissues appear unremarkable. IMPRESSION: Portable chest within normal limits. Dictated by: Martín Ramirez M.D. on 12/13/2018 at 7:30 ECG Data Attestation EKG: I personally reviewed and interpreted this ECG as follows: Prior ECG tracings: available for review Interpretation: normal sinus rhythm rate [address] [place] interval [address] changes no T-wave inversions similar to previous EKG MDM Narrative Medical decision making narrative: Patient states that she was playing disc golf last week and then her elbow started hurting. This is likely with causing aggravation. Discussed on NSAIDs and rest. Patient states her chest discomfort is better after Protonix. She feels like this is more like acid reflux. Low risk factors for cardiac disease and PE. Discharge Plan Departure Patient Disposition: Home Clinical Impression: Medial epicondyle apophysitis of left elbow due to overuse, Atypical chest pain Discharge Date/Time: 12/13/18 09:32 Interventions: ED Discharge Assessment Last Done: 12/13/18 09:31 Activity Restrictions/Additional Instructions: *You have been diagnosed with atypical chest pain, likely acid reflux and golfers elbow *What to do: recommend taking [id number] medication for acid reflux 30 min prior to meals or 30 min before bedtime. Rest the left arm for 1-2 weeks. *Continue to take medications as directed - Omeprazole 20 mg once a day OR ranitidine 150 mg once a day - ibuprofen 600 mg every 6-8 hours as for 1-2 weeks help with inflammation *Follow up with your primary care provider in 2-3 days *Return to ER if you should have increasing worsening chest discomfort, increasing weakness or any new, worsening or concerning symptoms Prescriptions: No Action ibuprofen 200 MG tablet 800 mg PO PRN PRN (Reason: Pain, Moderate) Qty: 0 RF: 0 etonogestrel [Nexplanon] 68 mg implant Subdermal RF: 0 Referrals: Stephanie Saha MD [Primary Care Provider] -
--- NOTE | 2018-12-13 08:18 | ED_ITS ---
HPI - Extremity Problem General Chief complaint: Extremity Problem,Nontraumatic Stated complaint: left elbow pain/chest discomfort Time Seen by Provider: 12/13/18 08:02 Source: patient Mode of arrival: ambulatory Limitations: no limitations History of Present Illness HPI Narrative: patient is a 33-year-old female who presents with variety of complaints. She is having left elbow pain amalia for the last week progressively getting worse. She denies any injury. She is right-hand dominant. She has numbness and tingling in the ulnar distribution. It does with movement. No weakness. This morning she woke up with chest discomfort. She said around 3:00 a.m. she had some chest discomfort lasted for about 3 hr intermittently. Does seem to be was slightly worse with exertion. Overall little bit better now. Denies any fever or cough no shortness of breath at rest no heart palpitations. MD Complaint: extremity pain ( Left elbow) Location: left and upper extremity Quality: burning Related Data Home Medications Medication Instructions Recorded Confirmed ibuprofen 800 mg PO PRN PRN #0 07/21/17 12/13/18 etonogestrel 68 mg subdermal SUBDERMAL each 11/09/18 11/09/18 implant Allergies Allergy/AdvReac Type Severity Reaction Status Date / Time Penicillins [PENICILLINS] Allergy Severe Anaphylaxis Verified 12/13/18 08:13 Review of Systems Review of Systems ROS Unobtainable: All systems reviewed & are unremarkable except as noted in HPI and below Constitutional Denies chills, Denies fever(s), Denies lethargy and Denies weakness Eyes Denies change in vision, Denies eye discharge, Denies irritation and Denies loss of vision ENT Ears, Nose, Mouth, and Throat: Denies change in voice, Denies neck pain and Denies sore throat Cardiovascular Reports chest pain, Denies dyspnea and Denies dyspnea on exertion Respiratory Denies cough, Denies dyspnea, Denies dyspnea on exertion and Denies wheezing Gastrointestinal Gastrointestinal: Denies abdominal pain, Denies change in bowel habits, Denies diarrhea, Denies nausea and Denies vomiting Musculoskeletal Reports as per HPI, Reports arthralgias, Denies neck pain and Reports radiating pain into limb (to middle ring and pinky fingers on left) Integumentary/Breasts Denies pruritus, Denies erythema, Denies rash and Denies wounds Neurologic Denies loss of vision and Denies weakness Allergic/Immunologic Denies wheezing [facility] Medical History Dermoid (Acute) Migraine headache (Acute) Surgical History Hx laparoscopic cholecystectomy (Resolved) Social History Smoking Status: Never smoker Social History Smoking Status: Never smoker Exam Initial Vital Signs Initial Vital Signs: Vital Signs Temperature 98.0 F 12/13/18 08:08 Pulse Rate 105 H 12/13/18 08:08 Respiratory Rate 18 12/13/18 08:08 Blood Pressure 142/87 H 12/13/18 08:08 Pulse Oximetry 100 12/13/18 08:08 GENERAL: Alert well-appearing female no acute distress HEENT: Head atraumatic,EOMI, pupils reactive, face symmetric, CARDIOVASCULAR: Regular rate and rhythm without murmurs, rubs or gallops. RESPIRATORY: Breath sounds equal bilaterally, no wheezes rales or rhonchi. ABDOMEN: Soft, nontender. Normoactive bowel sounds all 4 quadrants. No guarding or rebound. EXTREMITIES: Normal range of motion, no clubbing or edema. Neurovascularly intact left upper extremity palpated medial epicondyle painful. Painful with supination and pronation. Neurovascularly intact. Of good wrist flexion and extension. NEUROLOGICAL: Alert and oriented x4.Normal gait and speech. SKIN: Warm, dry, no laceration, no petechiae, no rashes or lesions. Scores HEART Score Heart Score history: Slightly Suspicious Heart Score EKG: Normal Heart Score Age: < 45 years old Heart Score risk factors: No known risk factors Heart Score troponin: < or = to normal limit Heart Score Total: 0 PERC Score Age greater than or equal to 50 years: No Heart rate greater than or equal to 100 bpm: No Room Air O2 Sat less than 95%: No Unilateral leg swelling: No Recent trauma or surgery: No Hemoptysis: No Prior PE or DVT: No Hormone Use: No Total PERC Score: 0 Course Orders Ordered: Discontinued Medications Ketorolac Tromethamine (Toradol) 30 mg IV NOW ONE Stop: 12/13/18 08:14 Last Admin: 12/13/18 08:26 Dose: 30 mg Pantoprazole Sodium (Protonix) 40 mg IV NOW ONE Stop: 12/13/18 08:14 Last Admin: 12/13/18 08:26 Dose: 40 mg Vital Signs - 8 hr 12/13/18 08:08 Temperature 98.0 F Pulse Rate 105 H Respiratory Rate 18 Blood Pressure 142/87 H Pulse Oximetry 100 MDM - Extremity (Nontraumatic) Lab Data Result diagrams: 12/13/18 08:20 12/13/18 08:20 Lab Results 12/13/18 12/13/18 Range/Units 08:20 08:20 WBC 5.9 (4.5-11.0) X10^3/uL RBC 4.66 (4.0-5.2) X10^6/uL Hgb 14.1 (12.0-16.0) g/dL Hct 41.4 (36-46) % MCV 88.9 (80-100) fL MCH 30.2 (26-34) PG MCHC 34.0 (30-36) % RDW 13.0 (11.6-14.8) % Plt Count 237 (150-400) X10^3/uL Neut % (Auto) 68.0 (50-75) % Lymph % (Auto) 26.3 (25-40) % Becker % (Auto) 4.8 (3-14) % Eos % (Auto) 0.5 L (2-4) % Baso % (Auto) 0.4 (0-2) % Neut # (Auto) 4000 (6633-3078) /uL Lymph # (Auto) 1600 (9581-6005) /uL Becker # (Auto) 300 (0-900) /uL Eos # (Auto) 0 (0-450) /uL Baso # (Auto) 0 (0-100) /uL Sodium 141 (137-145) mmol/L Potassium 3.6 (3.4-5.1) mmol/L Chloride 107 (98-107) mmol/L Carbon Dioxide 23 (22-32) mmol/L BUN 15 (7-17) mg/dL Creatinine 0.80 (0.52-1.04) mg/dL Estimated GFR > 60.0 (>60) mL/min BUN/Creatinine Ratio 18.8 (6-22) Glucose 117 H (70-100) mg/dL Calcium 9.2 (8.4-10.2) mg/dL Total Bilirubin 0.6 (0.2-1.3) mg/dL AST 18 (14-36) IU/L ALT 31 (9-52) IU/L Alkaline Phosphatase 104 (38-126) U/L Total Creatine Kinase 69 (30-135) U/L CK-MB (CK-2) TNP CK-MB (CK-2) Rel Index TNP Troponin I < 0.012 (0.01-0.034) ng/mL Total Protein 7.8 (6.3-8.2) g/dL Albumin 4.4 (3.5-5.0) g/dL Globulin 3.4 (1.7-4.1) g/dL Albumin/Globulin Ratio 1.3 (1.0-2.8) Lipase 68 (23-300) U/L Imaging Data Chest x-ray: Radiologist's impression: [address] [address] XRay Report Signed Patient: Sabrina Sanchez CMR#: [id number] : 1985Acct:[id number] Age/Sex: 33 / FDate of Service: 12/13/18 Loc: ED Accession Number: [id number] Procedure: XR chest 1V Ordering Provider: Karo Peace D.O. PROCEDURE: XR CHEST 1V INDICATIONS: chest pain TECHNIQUE: One view of the chest was acquired. COMPARISON: [facility], CHEST 1 VIEW, 06/22/2017, 12:39. [facility], XR CHEST 1V, 10/11/2018, 22:55. FINDINGS: Surgical changes and devices: None. Lungs and pleura: On this semiupright portable chest examination, no large pneumothorax or large pleural effusions are seen. No focal infiltrates are seen. Mediastinum: Mediastinal contours appear normal. Heart size is normal. Bones and chest wall: No suspicious bony lesions. Age-appropriate bony degenerative changes are seen. Mild levoconvex scoliotic curvature is noted. Overlying soft tissues appear unremarkable. IMPRESSION: Portable chest within normal limits. Dictated by: Martín Ramirez M.D. on 12/13/2018 at 7:30 ECG Data Attestation EKG: I personally reviewed and interpreted this ECG as follows: Prior ECG tracings: available for review Interpretation: normal sinus rhythm rate 105 [address] changes no T-wave inversions similar to previous EKG MDM Narrative Medical decision making narrative: Patient states that she was playing disc golf last week and then her elbow started hurting. This is likely with causing aggravation. Discussed on NSAIDs and rest. Patient states her chest discomfort is better after Protonix. She feels like this is more like acid reflux. Low risk factors for cardiac disease and PE. Discharge Plan Departure Patient Disposition: Home Clinical Impression: Medial epicondyle apophysitis of left elbow due to overuse, Atypical chest pain Discharge Date/Time: 12/13/18 09:32 Interventions: ED Discharge Assessment Last Done: 12/13/18 09:31 Activity Restrictions/Additional Instructions: *You have been diagnosed with atypical chest pain, likely acid reflux and golfers elbow *What to do: recommend taking [id number] medication for acid reflux 30 min prior to meals or 30 min before bedtime. Rest the left arm for 1-2 weeks. *Continue to take medications as directed - Omeprazole 20 mg once a day OR ranitidine 150 mg once a day - ibuprofen 600 mg every 6-8 hours as for 1-2 weeks help with inflammation *Follow up with your primary care provider in 2-3 days *Return to ER if you should have increasing worsening chest discomfort, increasing weakness or any new, worsening or concerning symptoms Prescriptions: No Action ibuprofen 200 MG tablet 800 mg PO PRN PRN (Reason: Pain, Moderate) Qty: 0 RF: 0 etonogestrel [Nexplanon] 68 mg implant Subdermal RF: 0 Referrals: Stephanie Saha MD [Primary Care Provider] -
[2018-12-13] MEDS: PANTOPRAZOLE 40 MG VIAL IV (08:26)
[2018-12-13] MEDS: KETOROLAC 60 MG/2 ML VIAL 30 MG IV (08:26)
[2018-12-13 08:27] LABS: Add Manual Diff / Slide Review NO; Basophils Absolute Auto 0 /uL (0-100); Basophils Percent Auto 0.4 % (0-2); Eosinophils Absolute Auto 0 /uL (0-450); Eosinophils Percent Auto 0.5 % (2-4); Hematocrit 41.4 % (36-46); Hemoglobin 14.1 g/dL (12.0-16.0); Lymphocytes Absolute Auto 1600 /uL (1100-4500); Lymphocytes Percent Auto 26.3 % (25-40); Mean Corpuscular Hemoglobin 30.2 PG (26-34); Mean Corpuscular Volume 88.9 fL (80-100); Monocytes Absolute Auto 300 /uL (0-900); Monocytes Percent Auto 4.8 % (3-14); Neutrophils Absolute Auto 4000 /uL (1500-7000); Platelet Count 237 X10^3/uL (150-400); Red Blood Cell Count 4.66 X10^6/uL (4.0-5.2); White Blood Cell Count 5.9 X10^3/uL (4.5-11.0)
[2018-12-13 08:37] LABS: Alanine Aminotransferase 31 IU/L (9-52); Albumin 4.4 g/dL (3.5-5.0); Albumin Globulin Ratio 1.3 (1.0-2.8); Alkaline Phosphatase 104 U/L (38-126); Aspartate Aminotransferase 18 IU/L (14-36); BUN Creatinine Ratio 18.8 (6-22); Bilirubin Total 0.6 mg/dL (0.2-1.3); Blood Urea Nitrogen 15 mg/dL (7-17); Calcium 9.2 mg/dL (8.4-10.2); Carbon Dioxide 23 mmol/L (22-32); Chloride 107 mmol/L (98-107); Creatine Kinase 69 U/L (30-135); Estimated Glomerular Filt Rate > 60.0 mL/min (>60); Globulin 3.4 g/dL (1.7-4.1); Glucose 117 mg/dL (70-100); HEMOLYSIS < 15 (0-50); Lipase 68 U/L (23-300); Potassium 3.6 mmol/L (3.4-5.1); Sodium 141 mmol/L (137-145); Total Protein 7.8 g/dL (6.3-8.2)
[2018-12-13 08:49] LABS: Troponin I < 0.012 ng/mL (0.01-0.034)
[2018-12-13 09:03] VITALS: BP 109/69; PULSE 79; RESP 20; O2SAT 98
[2018-12-13 09:21] VITALS: BP 109/69; PULSE 88; RESP 21; O2SAT 99
== END 2018-12-13 09:32 | disposition home or self-care (01) ==
PROVIDERS: Emergency Provider Emergency Medicine; PCP Internal Medicine Hematology & Oncology
DX: M93.922 Osteochondropathy, unspecified, left upper arm (principal); R07.89 Other chest pain
CPT/HCPCS: 71045; 80053; 82550; 83690; 84484; 85025; 93005; 93010; 96374; 96375; 99283; 99285; C9113; J1885

== ENCOUNTER 2018-12-23 18:21 | Emergency (ER) | payer OTHER, MEDICAID, SELFPAY ==
[2018-12-23 18:27] VITALS: BP 143/90; PULSE 94; RESP 15; TEMP 36.4; O2SAT 99; BMI 39.4
[2018-12-23] MEDS: MAG HYDROX/ALUMINUM/SIMETH SUS 20 ML, LIDOCAINE VISCOUS 2% 15 ML PO (18:33)
--- NOTE | 2018-12-23 18:33 | ED.ABDPAIN ---
HPI - Abdominal Pain <QIAN Elizabeth - Last Filed: 12/23/18 21:50> General Chief Complaint: Abdominal Pain Stated Complaint: states chest pain that radiates to stomach Time Seen by Provider: 12/23/18 18:33 Source: patient Mode of arrival: ambulatory Limitations: no limitations History of Present Illness HPI narrative: 33-year-old female with history of GERD that is an everyday smoker for complaint of pain to her epigastric area radiating up into her chest that starting this evening. She denies any nausea vomiting. She denies any trauma to the area. No shortness of breath. No fevers no chills. She reports her last bowel movement was earlier today and was normal. No urinary symptoms. She denies any stressors relievers of her symptoms. She is ambulatory into the emergency room. No acute distress. Related Data Home Medications Medication Instructions Recorded Confirmed ibuprofen 800 mg PO PRN PRN #0 07/21/17 12/13/18 etonogestrel 68 mg subdermal SUBDERMAL each 11/09/18 11/09/18 implant Allergies Allergy/AdvReac Type Severity Reaction Status Date / Time Penicillins [PENICILLINS] Allergy Severe Anaphylaxis Verified 12/23/18 18:29 Review of Systems <QIAN Elizabeth - Last Filed: 12/23/18 21:50> Eyes Denies change in vision, Denies eye discharge, Denies irritation and Denies loss of vision ENT Ears, Nose, Mouth, and Throat: Denies change in voice, Denies neck pain and Denies sore throat Cardiovascular Denies chest pain, Denies irregular heart rhythm, Denies lightheadedness, Denies palpitations, Denies dyspnea, Denies dyspnea on exertion and Denies orthopnea Respiratory Denies cough, Denies dyspnea, Denies dyspnea on exertion and Denies wheezing Gastrointestinal Gastrointestinal: Denies abdominal pain, Denies change in bowel habits, Denies diarrhea, Denies nausea and Denies vomiting Genitourinary Comments: Epigastric pain Musculoskeletal Denies neck pain Integumentary/Breasts Denies pruritus, Denies erythema, Denies rash and Denies wounds Neurologic Denies confusion and Denies loss of vision Psychiatric Denies anxiety, Denies confusion, Denies depression, Denies homicidal ideation and Denies suicidal ideation Endocrine Denies palpitations Hematologic/Lymphatic Denies easy bruising Allergic/Immunologic Denies wheezing PFSH <QIAN Elizabeth - Last Filed: 12/23/18 21:50> Medical History Anomalous pulmonary venous return (Acute) Dermoid (Acute) Migraine headache (Acute) Ovarian teratoma (Acute) Seasonal allergies (Acute) Shoulder fracture, left (Acute ~10/2016) Surgical History H/O LEEP (Acute ~2006) Hx of elbow surgery (Acute) Hx laparoscopic cholecystectomy (Resolved) Social History Smoking Status: Current every day smoker Social History Smoking Status: Current every day smoker Exam <QIAN Elizabeth - Last Filed: 12/23/18 21:50> Initial Vital Signs Initial Vital Signs: Vital Signs Temperature 97.6 F 12/23/18 18:27 Pulse Rate 94 H 12/23/18 18:27 Respiratory Rate 15 12/23/18 18:27 Blood Pressure 143/90 H 12/23/18 18:27 Pulse Oximetry 99 12/23/18 18:27 Const General: cooperative and well developed Nutritional Appearance: well nourished Orientation: alert, awake, oriented x3 and not confused HENWI Head: normal to inspection and normocephalic Mouth: oral mucosae normal and moist mucous membranes Throat: posterior oropharynx normal Eyes Conjunctivae: conjunctivae normal Sclera: sclerae normal Pupils: PERRL EOM: EOM intact bilaterally Resp Effort & Inspection: normal respiratory effort, able to speak in complete sentences, no respiratory distress and no use of accessory muscles Auscultation: clear to auscultation bilaterally, no rales, no rhonchi and no wheezes Cardio Rate: regular rate Rhythm: regular rhythm Heart Sounds: no click, no gallops, no murmurs and no rubs Pulses: normal peripheral pulses GI Inspection: non-distended Palpation: soft, no hepatosplenomegaly, No guarding, No pulsatile mass and No tender Auscultation: normal bowel sounds Neuro General: alert, oriented x3, gait normal and no focal motor deficits Speech: speech normal <Nicki Sparrow MD - Last Filed: 12/23/18 22:10> Initial Vital Signs Initial Vital Signs: Vital Signs Temperature 97.6 F 12/23/18 18:27 Pulse Rate 94 H 12/23/18 18:27 Respiratory Rate 15 12/23/18 18:27 Blood Pressure 143/90 H 12/23/18 18:27 Pulse Oximetry 99 12/23/18 18:27 Scores <QIAN Elizabeth - Last Filed: 12/23/18 21:50> HEART Score Heart Score history: Slightly Suspicious Heart Score EKG: Normal Heart Score Age: < 45 years old Heart Score risk factors: No known risk factors Heart Score troponin: < or = to normal limit Heart Score Total: 0 PERC Score Age greater than or equal to 50 years: No Heart rate greater than or equal to 100 bpm: No Room Air O2 Sat less than 95%: No Unilateral leg swelling: No Recent trauma or surgery: No Hemoptysis: No Prior PE or DVT: No Hormone Use: Yes Total PERC Score: 1 Course <QIAN Elizabeth - Last Filed: 12/23/18 21:50> Orders Ordered: ED Orders 12/23/18 19:07 XR chest 1V Stat EKG-12 Lead Stat 12/23/18 19:08 CT abdomen pelvis w con Stat 12/23/18 19:23 Complete Blood Count AUTO DIFF Stat Comprehensive Metabolic Panel Stat D Dimer Stat Lipase Stat Troponin I Stat 12/23/18 21:01 Troponin I Stat Discontinued Medications Al Hydrox/Mg Hydrox/Simethicone 20 ml/ Lidocaine HCl 15 ml 0 ml PO NOW ONE Stop: 12/23/18 18:32 Last Admin: 12/23/18 18:33 Dose: 35 ml Sodium Chloride (Normal Saline 0.9%) 1,000 mls @ 150 mls/hr IV CONT RACHAEL Last Infusion: 12/23/18 22:06 Dose: 0 mls/hr Admin: 12/23/18 19:36 Dose: 150 mls/hr Vital Signs - 8 hr 12/23/18 18:27 12/23/18 22:06 Temperature 97.6 F Pulse Rate 94 H 76 Respiratory Rate 15 Blood Pressure 143/90 H 125/64 Pulse Oximetry 99 97 <Nicki Sparrow MD - Last Filed: 12/23/18 22:10> Orders Ordered: ED Orders 12/23/18 19:07 XR chest 1V Stat EKG-12 Lead Stat 12/23/18 19:08 CT abdomen pelvis w con Stat 12/23/18 19:23 Complete Blood Count AUTO DIFF Stat Comprehensive Metabolic Panel Stat D Dimer Stat Lipase Stat Troponin I Stat 12/23/18 21:01 Troponin I Stat Discontinued Medications Al Hydrox/Mg Hydrox/Simethicone 20 ml/ Lidocaine HCl 15 ml 0 ml PO NOW ONE Stop: 12/23/18 18:32 Last Admin: 12/23/18 18:33 Dose: 35 ml Sodium Chloride (Normal Saline 0.9%) 1,000 mls @ 150 mls/hr IV CONT RACHAEL Last Infusion: 12/23/18 22:06 Dose: 0 mls/hr Admin: 12/23/18 19:36 Dose: 150 mls/hr Vital Signs - 8 hr 12/23/18 18:27 12/23/18 22:06 Temperature 97.6 F Pulse Rate 94 H 76 Respiratory Rate 15 Blood Pressure 143/90 H 125/64 Pulse Oximetry 99 97 MDM - Abdominal Pain <QIAN Elizabeth - Last Filed: 12/23/18 21:50> Lab Data Result diagrams: 12/23/18 19:23 12/23/18 19:23 Lab Results 12/23/18 12/23/18 12/23/18 Range/Units 19:23 19:23 19:23 WBC 9.5 (4.5-11.0) X10^3/uL RBC 4.63 (4.0-5.2) X10^6/uL Hgb 13.9 (12.0-16.0) g/dL Hct 41.9 (36-46) % MCV 90.5 (80-100) fL MCH 30.1 (26-34) PG MCHC 33.2 (30-36) % RDW 13.3 (11.6-14.8) % Plt Count 235 (150-400) X10^3/uL Neut % (Auto) 66.9 (50-75) % Lymph % (Auto) 25.1 (25-40) % Rutherford % (Auto) 6.4 (3-14) % Eos % (Auto) 1.0 L (2-4) % Baso % (Auto) 0.6 (0-2) % Neut # (Auto) 6300 (1746-3463) /uL Lymph # (Auto) 2400 (2688-9137) /uL R[place]ford # (Auto) 600 (0-900) /uL Eos # (Auto) 100 (0-450) /uL Baso # (Auto) 100 (0-100) /uL D-Dimer 429 H (<230) ng/mL Sodium 141 (137-145) mmol/L Potassium 3.9 (3.4-5.1) mmol/L Chloride 105 (98-107) mmol/L Carbon Dioxide 24 (22-32) mmol/L BUN 11 (7-17) mg/dL Creatinine 0.80 (0.52-1.04) mg/dL Estimated GFR > 60.0 (>60) mL/min BUN/Creatinine Ratio 13.8 (6-22) Glucose 97 (70-100) mg/dL Calcium 9.2 (8.4-10.2) mg/dL Total Bilirubin 0.4 (0.2-1.3) mg/dL AST 17 (14-36) IU/L ALT 37 (9-52) IU/L Alkaline Phosphatase 94 (38-126) U/L Troponin I < 0.012 (0.01-0.034) ng/mL Total Protein 7.7 (6.3-8.2) g/dL Albumin 4.4 (3.5-5.0) g/dL Globulin 3.3 (1.7-4.1) g/dL Albumin/Globulin Ratio 1.3 (1.0-2.8) Lipase 82 (23-300) U/L 12/23/18 Range/Units 21:01 WBC (4.5-11.0) X10^3/uL RBC (4.0-5.2) X10^6/uL Hgb (12.0-16.0) g/dL Hct (36-46) % MCV (80-100) fL MCH (26-34) PG MCHC (30-36) % RDW (11.6-14.8) % Plt Count (150-400) X10^3/uL Neut % (Auto) (50-75) % Lymph % (Auto) (25-40) % Rutherford % (Auto) (3-14) % Eos % (Auto) (2-4) % Baso % (Auto) (0-2) % Neut # (Auto) (6296-3576) /uL Lymph # (Auto) (3875-5062) /uL R[place]ford # (Auto) (0-900) /uL Eos # (Auto) (0-450) /uL Baso # (Auto) (0-100) /uL D-Dimer (<230) ng/mL Sodium (137-145) mmol/L Potassium (3.4-5.1) mmol/L Chloride (98-107) mmol/L Carbon Dioxide (22-32) mmol/L BUN (7-17) mg/dL Creatinine (0.52-1.04) mg/dL Estimated GFR (>60) mL/min BUN/Creatinine Ratio (6-22) Glucose (70-100) mg/dL Calcium (8.4-10.2) mg/dL Total Bilirubin (0.2-1.3) mg/dL AST (14-36) IU/L ALT (9-52) IU/L Alkaline Phosphatase (38-126) U/L Troponin I < 0.012 (0.01-0.034) ng/mL Total Protein (6.3-8.2) g/dL Albumin (3.5-5.0) g/dL Globulin (1.7-4.1) g/dL Albumin/Globulin Ratio (1.0-2.8) Lipase (23-300) U/L Imaging Data CT scan - abdomen: Radiologist's impression: CT Scan Report Signed Patient: Wero [facility]#: [id number] : 5Acct:[id number] Age/Sex: 83 / MDate of Service: 12/23/18 Loc: ED Accession Number: [id number] Procedure: CT angio chest PE protocol Ordering Provider: Robert Howard PROCEDURE: CT ANGIO CHEST PE PROTOCOL INDICATIONS: Pain across bilateral shoulders and thoracic spine TECHNIQUE: After the administration of intravenous contrast, 2 mm thick sections acquired from the pulmonary apices to the posterior costophrenic angles. 3-dimensional maximum intensity projection (MIP) coronal and sagittal reformats were then acquired through the thorax. For radiation dose reduction, the following was used: automated exposure control, adjustment of mA and/or kV according to patient size. COMPARISON: None. FINDINGS: Image quality: Excellent. Pulmonary arteries: Pulmonary arteries are normal in size, and demonstrate no intraluminal filling defects to suggest central pulmonary embolism. Lungs and pleura: Lungs are clear. Bibasilar atelectasis. No pleural effusions or pneumothorax. Central and peripheral airways are patent. Mediastinum: Heart size is normal, without pericardial effusion. No mediastinal or hilar adenopathy. Thoracic aorta is normal in caliber and enhancement. Esophagus is normal in caliber, with a small hiatal hernia. Bones and chest wall: There is a mixed lytic and sclerotic mass involving the anterior margin of the right third and measuring 2.9 x 3.7 cm in transverse dimension. There are also innumerable sclerotic lesions noted throughout the visualized thoracic and upper lumbar spine as well as numerous ribs. No acute compression fractures.. No axillary or supraclavicular adenopathy. Abdomen: Visualized upper abdominal solid organs appear normal in the early arterial phase of enhancement. IMPRESSION: 1. No acute pulmonary emboli. 2. No acute cardiopulmonary abnormalities. 3. Heterogeneous, expansile 3.7 cm mixed lytic and sclerotic mass involving the anterior margin of the right third rib. This may be an osseous primary neoplasm versus metastatic lesion. Additionally, there are innumerable sclerotic osseous lesions identified throughout the visualized thoracic and lumbar spine which are also suspicious for osseous metastatic disease. No acute compression fractures. Please see separate report for details of the abdomen and pelvis. Dictated by: Vaibhav Forbes M.D. on 12/23/2018 19:13 Approved by: Vaibhav Forbes M.D. on 12/23/2018 at 19:26 Chest x-ray: Radiologist's impression: [address] [address] XRay Report Signed Patient: Sabrina Sanchez CMR#: [id number] : 1985Acct:[id number] Age/Sex: 33 / FDate of Service: 12/23/18 Loc: ED Accession Number: [id number] Procedure: XR chest 1V Ordering Provider: Robert Howard PROCEDURE: XR CHEST 1V INDICATIONS: Epigastric/ chest pain TECHNIQUE: One view of the chest was acquired. COMPARISON: [facility], CR, XR CHEST 1V, 12/13/2018, 8:20. FINDINGS: Surgical changes and devices: None. Lungs and pleura: Lungs are clear. No pleural effusions or pneumothorax. Mediastinum: Mediastinal contours appear normal. Heart size is normal. Bones and chest wall: No suspicious bony lesions. Overlying soft tissues appear unremarkable. IMPRESSION: No acute disease. Dictated by: Vaibhav Forbes M.D. on 12/23/2018 at 20:08 Approved by: Vaibhav Forbes M.D. on 12/23/2018 at 20:08 ECG Data Interpretation: EKG shows normal sinus rhythm with no ST elevation or depression. No ectopy. Ventricular rate of 82. Pr interval of 139. QRS duration 98. QTC of 397. MDM Narrative Medical decision making narrative: Chest x-ray was obtained and was negative for any acute findings. CT scan of the abdomen was also obtained was also negative for any acute findings. EKG shows sinus rhythm with no ST elevation or depression. No ectopy. CBC and Chem panel were obtained were unremarkable. Lipase was normal. D-dimer was elevated at 429 however is below the threshold of 500 for indication for PE protocol CT. Heart score was 0. Two sets of cardiac enzymes were obtained were also negative. She was given a GI cocktail in the emergency room and this helped her symptoms improved. Believe that her symptoms are gastric secondary to her GERD. She is encouraged to use her omeprazole as prescribed. Follow up with primary care provider. Return emergency room for any worsening symptoms. <Nicki Sparrow MD - Last Filed: 12/23/18 22:10> Lab Data Lab Results 12/23/18 12/23/18 12/23/18 Range/Units 19:23 19:23 19:23 WBC 9.5 (4.5-11.0) X10^3/uL RBC 4.63 (4.0-5.2) X10^6/uL Hgb 13.9 (12.0-16.0) g/dL Hct 41.9 (36-46) % MCV 90.5 (80-100) fL MCH 30.1 (26-34) PG MCHC 33.2 (30-36) % RDW 13.3 (11.6-14.8) % Plt Count 235 (150-400) X10^3/uL Neut % (Auto) 66.9 (50-75) % Lymph % (Auto) 25.1 (25-40) % [place]uther[place] % (Auto) 6.4 (3-14) % Eos % (Auto) 1.0 L (2-4) % Baso % (Auto) 0.6 (0-2) % Neut # (Auto) 6300 (6663-6031) /uL Lymph # (Auto) 2400 (8744-2296) /uL [place] # (Auto) 600 (0-900) /uL Eos # (Auto) 100 (0-450) /uL Baso # (Auto) 100 (0-100) /uL D-Dimer 429 H (<230) ng/mL Sodium 141 (137-145) mmol/L Potassium 3.9 (3.4-5.1) mmol/L Chloride 105 (98-107) mmol/L Carbon Dioxide 24 (22-32) mmol/L BUN 11 (7-17) mg/dL Creatinine 0.80 (0.52-1.04) mg/dL Estimated GFR > 60.0 (>60) mL/min BUN/Creatinine Ratio 13.8 (6-22) Glucose 97 (70-100) mg/dL Calcium 9.2 (8.4-10.2) mg/dL Total Bilirubin 0.4 (0.2-1.3) mg/dL AST 17 (14-36) IU/L ALT 37 (9-52) IU/L Alkaline Phosphatase 94 (38-126) U/L Troponin I < 0.012 (0.01-0.034) ng/mL Total Protein 7.7 (6.3-8.2) g/dL Albumin 4.4 (3.5-5.0) g/dL Globulin 3.3 (1.7-4.1) g/dL Albumin/Globulin Ratio 1.3 (1.0-2.8) Lipase 82 (23-300) U/L 12/23/18 Range/Units 21:01 WBC (4.5-11.0) X10^3/uL RBC (4.0-5.2) X10^6/uL Hgb (12.0-16.0) g/dL Hct (36-46) % MCV (80-100) fL MCH (26-34) PG MCHC (30-36) % RDW (11.6-14.8) % Plt Count (150-400) X10^3/uL Neut % (Auto) (50-75) % Lymph % (Auto) (25-40) % Rutherford % (Auto) (3-14) % Eos % (Auto) (2-4) % Baso % (Auto) (0-2) % Neut # (Auto) (9887-7757) /uL Lymph # (Auto) (9467-7263) /uL Rutherford # (Auto) (0-900) /uL Eos # (Auto) (0-450) /uL Baso # (Auto) (0-100) /uL D-Dimer (<230) ng/mL Sodium (137-145) mmol/L Potassium (3.4-5.1) mmol/L Chloride (98-107) mmol/L Carbon Dioxide (22-32) mmol/L BUN (7-17) mg/dL Creatinine (0.52-1.04) mg/dL Estimated GFR (>60) mL/min BUN/Creatinine Ratio (6-22) Glucose (70-100) mg/dL Calcium (8.4-10.2) mg/dL Total Bilirubin (0.2-1.3) mg/dL AST (14-36) IU/L ALT (9-52) IU/L Alkaline Phosphatase (38-126) U/L Troponin I < 0.012 (0.01-0.034) ng/mL Total Protein (6.3-8.2) g/dL Albumin (3.5-5.0) g/dL Globulin (1.7-4.1) g/dL Albumin/Globulin Ratio (1.0-2.8) Lipase (23-300) U/L Discharge Plan Departure Patient Disposition: Home Clinical Impression: Abdominal pain Qualifiers: Abdominal location: epigastric Qualified Code(s): R10.13 - Epigastric pain Discharge Date/Time: 12/23/18 22:07 Interventions: ED Discharge Assessment Last Done: 12/23/18 22:06 Instructions: DI for Abdominal Pain-Adult Activity Restrictions/Additional Instructions: Laboratory results and imaging today were unremarkable. Symptoms were improved after using the GI cocktail. Signs and symptoms presents as due to reflux. Make sure you are using omeprazole as prescribed. Follow up with her primary care provider. Return emergency room for any worsening symptoms. Prescriptions: No Action ibuprofen 200 MG tablet 800 mg PO PRN PRN (Reason: Pain, Moderate) Qty: 0 RF: 0 etonogestrel [Nexplanon] 68 mg implant Subdermal RF: 0 Referrals: Stephanie Saha MD [Primary Care Provider] -
--- NOTE | 2018-12-23 19:07 | DI.RAD.S_ITS ---
PROCEDURE: XR CHEST 1V INDICATIONS: Epigastric/ chest pain TECHNIQUE: One view of the chest was acquired. COMPARISON: [facility], CR, XR CHEST 1V, 12/13/2018, 8:20. FINDINGS: Surgical changes and devices: None. Lungs and pleura: Lungs are clear. No pleural effusions or pneumothorax. Mediastinum: Mediastinal contours appear normal. Heart size is normal. Bones and chest wall: No suspicious bony lesions. Overlying soft tissues appear unremarkable. IMPRESSION: No acute disease. Dictated by: Vaibhav Forbes M.D. on 12/23/2018 at 20:08 Approved by: Vaibhav Forbes M.D. on 12/23/2018 at 20:08
--- NOTE | 2018-12-23 19:08 | DI.CT.S_ITS ---
PROCEDURE: CT ABDOMEN PELVIS W CON INDICATIONS: Pain into upper abdomen TECHNIQUE: After the administration of intravenous contrast, 5 mm thick sections acquired from the diaphragm to the symphysis. 5 mm coronal and sagittal reformats were acquired. For radiation dose reduction, the following was used: automated exposure control, adjustment of mA and/or kV according to patient size. COMPARISON: None. FINDINGS: Inferior Mediastinum: Visualized portions of the inferior mediastinum and inferior heart are unremarkable. Lungs: Visualized lung bases are clear. ABDOMEN FINDINGS: Liver: Liver is unremarkable in appearance without focal intrahepatic abnormalities. No intrahepatic or extrahepatic biliary ductal dilatation. Gallbladder: Status post cholecystectomy Stomach: Visualized stomach appears unremarkable. Spleen: The spleen is normal in size and appearance. Adrenal glands: The adrenal glands are unremarkable in CT appearance. No suspicious nodules. Pancreas: Symmetric enhancement without focal lesions or pancreatic ductal dilatation. Kidneys: Kidneys are symmetric in size and enhancement, and there is no obstructive uropathy. Ureters are normal in course and caliber. Vessels: The visualized vascular structures are intact and well opacified. No evidence for aneurysmal dilatation of the abdominal aorta. Bowel and Mesentery: There is no evidence for bowel obstruction or acute inflammatory process. Scatter colonic diverticulosis without acute inflammation.The visualized appendix appears normal. Peritoneal cavity: No suspicious lymphadenopathy within the mesenteric or pelvic regions as per CT size criteria. No free intraabdominal gas or fluid. Other soft tissues: No inguinal hernia. No ventral hernia. PELVIC FINDINGS: The visualized urinary bladder appears intact. There is a 2.8 cm right ovarian/adnexal mass which contains macroscopic fat, soft tissue components and dense calcification. Findings are compatible with a dermoid. No pathologically enlarged pelvic lymph nodes. No pathologic pelvic free fluid. Reproductive organs: Unremarkable as visualized. Osseous Structures: Visualized osseous structures are intact without acute fracture or focal destructive lesion. IMPRESSION: 1. CT abdomen and pelvis without acute abnormalities. 2. Scattered colonic diverticulosis without acute diverticulitis. 3. Incidental note of a 2.8 cm right ovarian dermoid cyst. 4. Status post cholecystectomy. Normal appendix. Dictated by: Vaibhav Forbes M.D. on 12/23/2018 at 20:37 Approved by: Vaibhav Forbes M.D. on 12/23/2018 at 20:45
[2018-12-23 19:35] LABS: Add Manual Diff / Slide Review NO; Basophils Absolute Auto 100 /uL (0-100); Basophils Percent Auto 0.6 % (0-2); Eosinophils Absolute Auto 100 /uL (0-450); Hematocrit 41.9 % (36-46); Hemoglobin 13.9 g/dL (12.0-16.0); Lymphocytes Absolute Auto 2400 /uL (1100-4500); Lymphocytes Percent Auto 25.1 % (25-40); Mean Corpuscular HGB Conc 33.2 % (30-36); Mean Corpuscular Hemoglobin 30.1 PG (26-34); Mean Corpuscular Volume 90.5 fL (80-100); Monocytes Absolute Auto 600 /uL (0-900); Monocytes Percent Auto 6.4 % (3-14); Neutrophils Absolute Auto 6300 /uL (1500-7000); Neutrophils Percent Auto 66.9 % (50-75); Platelet Count 235 X10^3/uL (150-400); Red Blood Cell Count 4.63 X10^6/uL (4.0-5.2); Red Cell Distribution Width 13.3 % (11.6-14.8); White Blood Cell Count 9.5 X10^3/uL (4.5-11.0)
[2018-12-23] MEDS: SODIUM CHLORIDE 0.9% 1,000 ML 150 ML IV (19:36)
[2018-12-23 19:45] LABS: D Dimer 429 ng/mL (<230)
[2018-12-23 19:48] LABS: Alanine Aminotransferase 37 IU/L (9-52); Albumin 4.4 g/dL (3.5-5.0); Albumin Globulin Ratio 1.3 (1.0-2.8); Alkaline Phosphatase 94 U/L (38-126); Aspartate Aminotransferase 17 IU/L (14-36); BUN Creatinine Ratio 13.8 (6-22); Bilirubin Total 0.4 mg/dL (0.2-1.3); Blood Urea Nitrogen 11 mg/dL (7-17); Calcium 9.2 mg/dL (8.4-10.2); Carbon Dioxide 24 mmol/L (22-32); Chloride 105 mmol/L (98-107); Estimated Glomerular Filt Rate > 60.0 mL/min (>60); Globulin 3.3 g/dL (1.7-4.1); Glucose 97 mg/dL (70-100); HEMOLYSIS < 15 (0-50); Lipase 82 U/L (23-300); Potassium 3.9 mmol/L (3.4-5.1); Sodium 141 mmol/L (137-145); Total Protein 7.7 g/dL (6.3-8.2)
[2018-12-23 20:00] LABS: Troponin I < 0.012 ng/mL (0.01-0.034)
[2018-12-23 21:42] LABS: Troponin I < 0.012 ng/mL (0.01-0.034)
[2018-12-23 22:06] VITALS: BP 125/64; PULSE 76; O2SAT 97
== END 2018-12-23 22:07 | disposition home or self-care (01) ==
PROVIDERS: Emergency Provider Nurse Practitioner Family; PCP Internal Medicine Hematology & Oncology
DX: R10.13 Epigastric pain (principal)
CPT/HCPCS: 36415; 36591; 71045; 74177; 80053; 83690; 84484; 85025; 85379; 93005; 93010; 96360; 96361; 99283; 99285

== ENCOUNTER → 2019-01-11 09:12 | Outpatient (CLI) | payer OTHER, MEDICAID, SELFPAY | PROVIDERS: PCP Internal Medicine Hematology & Oncology; Visit Provider Physician Assistant | DX: R68.89 Other general symptoms and signs (principal) | CPT/HCPCS: 87400 ==

== ENCOUNTER 2019-02-14 06:20 | Day surgery (SDC) | payer OTHER, MEDICAID, SELFPAY ==
[2018-12-22 15:09] VITALS: BMI 39.4
[2019-02-14] VITALS (12 sets, daily range): BP systolic 94–135; BP diastolic 50–88; PULSE 68–118; RESP 10–16; TEMP 36.2–37.4; O2SAT 95–100; BMI 39.4
--- NOTE | 2019-02-14 | PATH_ITS ---
[facility] Accession Number: [id number] . 01 Material submitted: . fallopian tube - RIGHT FALLOPIAN TUBE AND OVARY, LEFT FALLOPIAN TUBE . 02 Diagnosis: Right Fallopian Tube and Ovary, Left Fallopian Tube, Right Salpingo-oophorectomy, Left Salpingectomy: 1. Right ovarian mature cystic teratoma. 2. Bilateral fallopian tubes with no diagnostic abnormality. 3. No evidence of malignancy. MRV/02/16/2019 . 02 Electronically signed: . Kerry Tyson MD, Pathologist NPI- [id number] . 01 Gross description: . Received in formalin, labeled right fallopian tube + ovary + left fallopian tube, is an intact ovarian cyst (4.3 x 2.5 x 2.4 cm) with an attached fimbriated fallopian tube (length-3.5 cm, diameter-0.3 cm) and a detached fimbriated fallopian tube (length-4.1 cm, diameter-0.3 cm). The cyst has ratliff-marie smooth flat serosa and contains yellow oily and focally waxy material mixed with matted strands of hair. The lining is hair bearing and contains a ratliff-marie solid hard irregular growth (1.0 x 0.7 x 0.3 cm). This growth appears to be bone. A minimal amount of normal ovarian parenchyma is identified. The fallopian tubes have marie smooth shiny serosa and marie unremarkable lumens. Section code: (A1, A2) ovarian cyst, marketing representative serial sections; (A3) attached fallopian tube, marketing representative serial sections; (A4) attached fimbria, bivalved, entirely submitted; (A5) detached fallopian tube, marketing representative serial sections; (A6) detached fimbria, bivalved, entirely submitted. ([id number]) /MRV . 02 Pathologist provided ICD-10: D27.9 . 02 CPT . 770527 Performed at: 01 [facility] [address] [place] [address], [place], [place] [id number] MD Jerald Ashford MD Phone: [phone] Performed at: 02 [facility] [address] [place], [place] [id number] MD Kerry Tyson MD Phone: [phone]
[2019-02-14] MEDS: LACTATED RINGERS 1,000 ML 42 ML IV (07:03)
--- NOTE | 2019-02-14 07:48 | PM.PREOP ---
Pre-operative Note Interval Note History & Physical reviewed/Exam performed by Physician: Yes Changes to H&P: No
--- NOTE | 2019-02-14 07:49 | PM.HP.1 ---
History of Present Illness Date Patient Seen: 02/14/19 Time Patient Seen: 07:49 Chief complaint: [id number] Narrative: Patient is a 33-year-old with a right ovarian dermoid and desires permanent sterilization She is scheduled for a laparoscopic right salpingo oophorectomy and left salpingectomy Patient History Family & Social History Social History: household members significant other Tobacco & Substance use: Smoking Status Current every day smoker alcohol intake current alcohol intake frequency 0-2 drinks per day Substance Use Type does not use,other Meds Home Medications Medication Instructions Recorded Confirmed Type ibuprofen 800 mg PO PRN PRN #0 07/21/17 02/14/19 History etonogestrel 68 mg subdermal See Rx Instructions .ROUTE 11/09/18 01/11/19 History implant .COMPLEX each Allergies Allergy/AdvReac Type Severity Reaction Status Date / Time Penicillins [PENICILLINS] Allergy Severe Anaphylaxis Verified 02/14/19 06:59 Exam Vital Signs (past 8 hours): - 02/14/19 06:40 Temperature 99.3 F Pulse Rate 109 H Respiratory Rate 16 Blood Pressure 135/88 Pulse Oximetry 100 Oxygen Delivery Method Room Air Narrative Exam Narrative: HEENT: No thyromegaly, no anterior cervical or supraclavicular lymphadenopathy. Lungs:Clear to auscultation bilaterally, no wheezes. Cardiovascular: Regular rate and rhythm, no murmurs, rubs, or gallops. Abdomen: Well-healed laparoscopy scars. No hepatosplenomegaly. No masses palpable. External genitalia: Normal Vagina: Normal Cervix: Normal Bimanual exam: 10 Week size anteverted uterus. Mobile. Rectal: No masses. Assessment & Plan Assessment & Plan narrative: Assessment: 33-year-old with a right ovarian dermoid who desires permanent sterilization Plan: Laparoscopic right salpingo oophorectomy and left salpingectomy The risks, benefits, and alternatives to the procedure were explained to the patient. The risks including bleeding, infection, injury to the bowel, bladder, or ureters. She understands these risks and agrees to proceed. A full PAR-Q was held and consent form was signed. Time Spent With Patient Time with patient: 15-24 minutes
--- NOTE | 2019-02-14 08:26 | SUR.OPER ---
Supine on padded OR bed, head on pillow, arms secured on padded arm boards at <90 degrees abduction, legs uncrossed, safety belt at thigh, tape over blanket over lower legs.
[2019-02-14] MEDS: BUPIVACAINE 0.5% W/ EPI (PF) VIAL 30 ML INJ (08:32)
--- NOTE | 2019-02-14 08:39 | SUR.OPER ---
GLASSES IN LABELED CONTAINER TO PACU WITH PATIENT
[2019-02-14] MEDS: HYDROMORPHONE 2 MG INJ 0.5 MG IV ×2 (09:20→09:25)
[2019-02-14] MEDS: ONDANSETRON 4 MG/2 ML INJ IV (09:58)
[2019-02-14] MEDS: hydrOXYzine 50 MG/ML INJ 25 MG IM (10:30)
--- NOTE | 2019-02-14 10:32 | SUR.PHASEII ---
pt resting quietly, medicated for off an on nausea abdomen is soft and not distended, dressings remain dry and intact.
[2019-02-14] MEDS: METOCLOPRAMIDE 10 MG/2 ML INJ IV (11:13)
--- NOTE | 2019-02-14 11:15 | SUR.PHASEII ---
pt continues to c/o nausea, Dr Hilliard and Dr Silva notified, will continue to medicate and let pt rest some more.
--- NOTE | 2019-02-14 11:39 | SUR.PHASEII ---
pt states she feels much better and desires to go [place], # 2 bag of LR completed, abdomen soft and non distended, dressings remain dry and intact. tolerating sips of joseph sloane, pt home with boyfriend
--- NOTE | 2019-02-24 16:20 | PM.GYNOP.1 ---
Operative Date/Time/Diagnoses Date of procedure: 02/14/19 Time of procedure: 09:00 Pre-op diagnosis: Right ovarian dermoid Desires permanent sterilization Post-op diagnosis: same Procedure: Procedures Operation Date: 02/14/19 07:45 Actual Procedures Side Surgeon p Laparoscopic Right S&O, Left Salpingectomy Bilateral Abigail Silva MD Indications: Right ovarian dermoid Desires permanent sterilization Surgeon: Abigail Silva Anesthesia Type: General Operative Notes Findings: Normal uterus and tubes 3.5 cm right ovarian dermoid Normal liver, Appendix not visualized Closure Type: primary Specimen(s): left tube and right tube & ovary Applied: catheter Estimated blood loss (mL): 5 Blood products transfused: none Procedure in detail: After informed consent was obtained, the patient was taken to the operating room where she was placed in the dorsal supine position. After adequate general endotracheal anesthesia was achieved, she was placed in the dorsal lithotomy position, and prepped and draped in the usual sterile fashion. A time-out was performed. A bivalve speculum was placed into the vagina and the anterior lip of the cervix grasped with a single-tooth tenaculum. The cervical os was sequentially dilated until the Zumi uterine manipulator could pass easily into the endometrial cavity. The single-tooth tenaculum was removed from the anterior lip of the cervix. The bivalve speculum was removed from the vagina. Attention was then turned to the abdomen where 6 cc of 0.5% Marcaine with epinephrine were injected in the umbilical fold. A 5 mm incision was made. The Veress needle was placed into the peritoneal cavity, and its placement confirmed by aspiration and drop test. The abdominal cavity was insufflated with 3.8 L of CO2. The Veress needle was removed, and a 5 mm trocar was placed without difficulty. Initial inspection of the pelvis and abdomen revealed the findings noted above. Two other 5 mm incisions were made midway between the pubic symphysis and umbilicus, 4 cm lateral to the midline. These were made after 6 cc of 0.5% Marcaine with epinephrine were injected. Two other 5 mm trocars were placed under direct visualization. The right tube and ovary were grasped with an atraumatic grasper. Using the PlasmaKinetic with settings of 40 w, the infundibulopelvic ligament on the right side was cauterized and cut. The mesosalpinx was cauterized and cut all the way down to the cornu of the uterus and the tube was amputated at the cornua. The right tube and ovary were placed into the anterior cul-de-sac. The left tube was grasped with an atraumatic grasper. Using the PlasmaKinetic was settings at 40 w, the mesosalpinx was cauterized and cut all the way down to the cornu of the uterus and the tube was amputated at the cornua. The left tube was placed into the anterior cul-de-sac. The camera was changed to the right lateral trocar. The 5 mm trocar was removed from the umbilicus. The incision was extended to 11 mm. The 11 mm trocar was placed. An endobag was placed through the umbilical trocar and the tubes and right ovary were placed into the bag. The trocar was removed. The bag was brought up through the umbilical incision. The pelvis was examined and there was no bleeding noted. the instruments were removed from the abdomen. The CO2 was allowed to escape. The umbilical incision was closed on the fascia with 0 Vicryl in a running fashion. All of the incisions were closed on the skin with 4 0 undyed Vicryl in a subcuticular fashion. Steri-Strips, 2 x 2, and op site were placed. The Zumi uterine manipulator was removed from the uterus. Sponge, lap, and instrument counts were correct x2. The patient tolerated the procedure well, and was taken to PACU in stable condition. Complications: none Post-operative Condition: stable Disposition: PACU Plan for aftercare: Home after recovery
== END 2019-02-14 11:37 | disposition home or self-care (01) ==
PROVIDERS: Visit Provider Obstetrics & Gynecology
PROC: 0UT24ZZ Resection of Bilateral Ovaries, Percutaneous Endoscopic Approach (ICD-10-PCS; CPT 58661; principal; 2019-02-14 07:45)
DX: Z30.2 Encounter for sterilization (principal); D27.0 Benign neoplasm of right ovary; F17.210 Nicotine dependence, cigarettes, uncomplicated
CPT/HCPCS: 58661; J0330; J1100; J1170; J2250; J2405; J2704; J2765; J3010; J3410

== ENCOUNTER 2019-02-20 18:47 | Emergency (ER) | payer OTHER, MEDICAID, SELFPAY ==
[2019-02-20 19:04] VITALS: BP 131/75; PULSE 101; RESP 20; TEMP 36.9; O2SAT 100
--- NOTE | 2019-02-20 19:09 | DI.RAD.S_ITS ---
PROCEDURE: XR CHEST 1V INDICATIONS: chest pain, near syncope TECHNIQUE: One view of the chest was acquired. COMPARISON: 12/23/18. FINDINGS: Surgical changes and devices: None. Lungs and pleura: Lungs are clear. No pleural effusions or pneumothorax. Mediastinum: Mediastinal contours appear normal. Heart size is normal. Bones and chest wall: No suspicious bony lesions. Overlying soft tissues appear unremarkable. IMPRESSION: No acute disease. Dictated by: Vaibhav Forbes M.D. on 02/20/2019 at 21:13 Approved by: Vaibhav Forbes M.D. on 02/20/2019 at 21:14
[2019-02-20 19:36] LABS: Add Manual Diff / Slide Review NO; Basophils Absolute Auto 100 /uL (0-100); Basophils Percent Auto 0.5 % (0-2); Eosinophils Absolute Auto 100 /uL (0-450); Eosinophils Percent Auto 0.9 % (2-4); Hematocrit 43.7 % (36-46); Hemoglobin 14.2 g/dL (12.0-16.0); Lymphocytes Absolute Auto 3000 /uL (1100-4500); Lymphocytes Percent Auto 25.9 % (25-40); Mean Corpuscular HGB Conc 32.5 % (30-36); Mean Corpuscular Hemoglobin 29.5 PG (26-34); Mean Corpuscular Volume 90.8 fL (80-100); Monocytes Absolute Auto 600 /uL (0-900); Monocytes Percent Auto 5.5 % (3-14); Neutrophils Absolute Auto 7700 /uL (1500-7000); Neutrophils Percent Auto 67.2 % (50-75); Platelet Count 296 X10^3/uL (150-400); Red Blood Cell Count 4.82 X10^6/uL (4.0-5.2); Red Cell Distribution Width 14.1 % (11.6-14.8); White Blood Cell Count 11.5 X10^3/uL (4.5-11.0)
[2019-02-20 19:41] LABS: D Dimer 327 ng/mL (<230)
[2019-02-20 19:42] LABS: Alanine Aminotransferase 19 IU/L (9-52); Albumin 4.5 g/dL (3.5-5.0); Albumin Globulin Ratio 1.3 (1.0-2.8); Alkaline Phosphatase 116 U/L (38-126); Aspartate Aminotransferase 16 IU/L (14-36); BUN Creatinine Ratio 21.1 (6-22); Bilirubin Total 0.3 mg/dL (0.2-1.3); Blood Urea Nitrogen 19 mg/dL (7-17); Calcium 9.3 mg/dL (8.4-10.2); Carbon Dioxide 25 mmol/L (22-32); Chloride 103 mmol/L (98-107); Creatine Kinase 39 U/L (30-135); Estimated Glomerular Filt Rate > 60.0 mL/min (>60); Globulin 3.6 g/dL (1.7-4.1); Glucose 126 mg/dL (70-100); HEMOLYSIS < 15 (0-50); Potassium 3.8 mmol/L (3.4-5.1); Sodium 141 mmol/L (137-145); Total Protein 8.1 g/dL (6.3-8.2)
[2019-02-20 19:53] LABS: Troponin I < 0.012 ng/mL (0.01-0.034)
[2019-02-20 19:55] VITALS: BP 125/84; PULSE 89; RESP 16; O2SAT 95
--- NOTE | 2019-02-20 19:56 | ED.CHESTPAIN ---
HPI - Chest Pain General Chief Complaint: Chest Pain Stated Complaint: LT Leg Groin to calf - had surgery Mon. Time Seen by Provider: 02/20/19 19:56 Source: patient Mode of arrival: ambulatory Limitations: no limitations History of Present Illness HPI narrative: 33-year-old female nonsmoker with minimal medical history presents with left medial thigh pain in the absence of injury as well as a bit of shortness of breath over the past few days. She feels lightheaded and almost passed out earlier today. Her significant other brought her in for evaluation. The patient recently had a laparoscopic salpingo oophorectomy. She denies any fever or chills. She denies any abdominal pain. She has very minimal pelvic discharge. She denies dysuria, frequency or urgency MD complaint: other Onset (ago): hour(s) Duration: intermittent Onset: during rest Pain location: substernal Quality: aching Relieving factors: nothing Exacerbating factors: nothing Context: recent surgery Associated symptoms: dyspnea and syncope (Near syncope) Treatments prior to arrival chest pain: none Related Data Home Medications Medication Instructions Recorded Confirmed ibuprofen 800 mg PO PRN PRN #0 07/21/17 02/14/19 etonogestrel 68 mg subdermal See Rx Instructions .ROUTE 11/09/18 01/11/19 implant .COMPLEX each Previous Rx's Medication Instructions Recorded oxycodone-acetaminophen [Percocet] 1 tab PO Q4-6H PRN #20 tab 02/14/19 Allergies Allergy/AdvReac Type Severity Reaction Status Date / Time Penicillins [PENICILLINS] Allergy Severe Anaphylaxis Verified 02/14/19 06:59 Review of Systems Constitutional Denies chills, Denies fever(s), Denies lethargy and Denies weakness Eyes Denies change in vision, Denies eye discharge, Denies irritation and Denies loss of vision ENT Ears, Nose, Mouth, and Throat: Denies change in voice, Denies neck pain and Denies sore throat Cardiovascular Denies chest pain, Denies irregular heart rhythm, Reports lightheadedness, Denies palpitations, Reports dyspnea, Denies dyspnea on exertion and Denies orthopnea Respiratory Denies cough, Reports dyspnea, Denies dyspnea on exertion and Denies wheezing Gastrointestinal Gastrointestinal: Denies abdominal pain, Denies change in bowel habits, Denies diarrhea, Denies nausea and Denies vomiting Genitourinary Denies hematuria, Denies flank pain, Denies urinary incontinence and Denies urinary urgency Musculoskeletal Reports muscle cramps and Denies neck pain Integumentary/Breasts Denies pruritus, Denies erythema, Denies rash and Denies wounds Neurologic Denies confusion, Denies loss of vision and Denies weakness Psychiatric Denies anxiety, Denies confusion, Denies depression, Denies homicidal ideation and Denies suicidal ideation Endocrine Denies palpitations Hematologic/Lymphatic Denies easy bruising Allergic/Immunologic Denies wheezing PFSH Medical History Anomalous pulmonary venous return (Acute) Dermoid (Acute) Migraine headache (Acute) Ovarian teratoma (Acute) Seasonal allergies (Acute) Shoulder fracture, left (Acute ~10/2016) Surgical History H/O LEEP (Acute ~2006) Hx of elbow surgery (Acute) Hx laparoscopic cholecystectomy (Resolved) Social History household members: significant other Smoking Status: Current every day smoker Social History household members: significant other Smoking Status: Current every day smoker Exam Narrative Exam Narrative: GENERAL: 33-year-old female resting comfortably though in mild distress HEAD: Atraumatic. Normocephalic. No temporal or scalp tenderness. EYES: Pupils equal round and reactive. Extraocular motions intact. No scleral icterus. No injection or drainage. ENT: Nose without bleeding, purulent drainage or septal hematoma. Throat without erythema, tonsillar hypertrophy or exudate. Uvula midline. Airway patent. NECK: Trachea midline. No JVD or lymphadenopathy. Supple, nontender, no meningeal signs. CARDIOVASCULAR: Regular rate and rhythm without murmurs, gallops, or rubs. RESPIRATORY: Clear to auscultation. Breath sounds equal bilaterally. No wheezes, rales, or rhonchi. GASTROINTESTINAL: Abdomen soft, non-tender, nondistended. No hepato-splenomegaly, or palpable masses. No guarding. EXTREMITIES: Medial thigh report of tenderness but no warmth, erythema or induration. No clubbing, cyanosis, or edema. No joint tenderness, effusion, or edema noted. BACK: Nontender without deformity or crepitance. No flank tenderness. NEURO: AOx3. SKIN: No rash or erythema. Initial Vital Signs Initial Vital Signs: Vital Signs Temperature 98.5 F 02/20/19 19:04 Pulse Rate 101 H 02/20/19 19:04 Respiratory Rate 20 02/20/19 19:04 Blood Pressure 131/75 02/20/19 19:04 Pulse Oximetry 100 02/20/19 19:04 Course Orders Ordered: Discontinued Medications Sodium Chloride (Normal Saline 0.9%) 1,000 mls @ 1,000 mls/hr IV BOLUS ONE Stop: 02/20/19 21:05 Last Infusion: 02/20/19 21:58 Dose: 0 mls/hr Admin: 02/20/19 20:16 Dose: 1,000 mls/hr Vital Signs - 8 hr 02/20/19 19:04 Temperature 98.5 F Pulse Rate 101 H Respiratory Rate 20 Blood Pressure 131/75 Pulse Oximetry 100 MDM - Chest Pain Lab Data Result diagrams: 02/20/19 19:22 02/20/19 19:22 Lab Results 02/20/19 02/20/19 02/20/19 Range/Units 19:22 19:22 19:22 WBC 11.5 H (4.5-11.0) X10^3/uL RBC 4.82 (4.0-5.2) X10^6/uL Hgb 14.2 (12.0-16.0) g/dL Hct 43.7 (36-46) % MCV 90.8 (80-100) fL MCH 29.5 (26-34) PG MCHC 32.5 (30-36) % RDW 14.1 (11.6-14.8) % Plt Count 296 (150-400) X10^3/uL Neut % (Auto) 67.2 (50-75) % Lymph % (Auto) 25.9 (25-40) % Stephenson % (Auto) 5.5 (3-14) % Eos % (Auto) 0.9 L (2-4) % Baso % (Auto) 0.5 (0-2) % Neut # (Auto) 7700 H (8889-5515) /uL Lymph # (Auto) 3000 (5670-3964) /uL Stephenson # (Auto) 600 (0-900) /uL Eos # (Auto) 100 (0-450) /uL Baso # (Auto) 100 (0-100) /uL D-Dimer 327 H (<230) ng/mL Sodium 141 (137-145) mmol/L Potassium 3.8 (3.4-5.1) mmol/L Chloride 103 (98-107) mmol/L Carbon Dioxide 25 (22-32) mmol/L BUN 19 H (7-17) mg/dL Creatinine 0.90 (0.52-1.04) mg/dL Estimated GFR > 60.0 (>60) mL/min BUN/Creatinine Ratio 21.1 (6-22) Glucose 126 H (70-100) mg/dL Calcium 9.3 (8.4-10.2) mg/dL Total Bilirubin 0.3 (0.2-1.3) mg/dL AST 16 (14-36) IU/L ALT 19 (9-52) IU/L Alkaline Phosphatase 116 (38-126) U/L Total Creatine Kinase 39 (30-135) U/L CK-MB (CK-2) TNP CK-MB (CK-2) Rel Index TNP Troponin I < 0.012 (0.01-0.034) ng/mL Total Protein 8.1 (6.3-8.2) g/dL Albumin 4.5 (3.5-5.0) g/dL Globulin 3.6 (1.7-4.1) g/dL Albumin/Globulin Ratio 1.3 (1.0-2.8) Imaging Data CT scan - chest: Radiologist's impression: [place] [address] CT Scan Report Signed Patient: Sabrina Sanchez CMR#: [id number] : 1985Acct:[id number] Age/Sex: 33 / FDate of Service: 02/20/19 Loc: ED Accession Number: [id number] Procedure: CT angio chest PE protocol Ordering Provider: Tonny Osborne D.O. PROCEDURE: CT ANGIO CHEST PE PROTOCOL INDICATIONS: CP, SOB, near syncope. post op, smoker, on birthcontrol TECHNIQUE: After the administration of intravenous contrast, 2 mm thick sections acquired from the pulmonary apices to the posterior costophrenic angles. 3-dimensional maximum intensity projection (MIP) coronal and sagittal reformats were then acquired through the thorax. For radiation dose reduction, the following was used: automated exposure control, adjustment of mA and/or kV according to patient size. COMPARISON: None. FINDINGS: Image quality: Excellent. Pulmonary arteries: Pulmonary arteries are normal in size, and demonstrate no intraluminal filling defects to suggest central pulmonary embolism. Lungs and pleura: No acute airspace disease. No focal consolidation. 5 mm left lower lobe pulmonary nodule seen on image 26, series 5. There is a 4 mm left basilar pulmonary nodule seen on image 36, series 5. There is a 4 mm anterior right lower lobe nodule seen on image 43, series 5. No pleural effusions or pneumothorax. Central and peripheral airways are patent. Mediastinum: Heart size is normal, without pericardial effusion. No mediastinal or hilar adenopathy. Thoracic aorta is normal in caliber and enhancement. Esophagus is normal in caliber, without hiatal hernia. Bones and chest wall: No suspicious bony lesions. Ribs and thoracic spine appear intact throughout. Thyroid gland appears unremarkable. No axillary or supraclavicular adenopathy. Abdomen: Visualized upper abdominal solid organs appear normal in the early arterial phase of enhancement. IMPRESSION: 1. No acute pulmonary emboli or acute cardiopulmonary abnormalities. 2. A few indeterminate noncalcified pulmonary nodules measuring between 4 and 5 mm in size. If the patient is at low risk for malignancy, no follow up imaging is recommended. If the patient is at high risk, consider followup CT in 12 months. Dictated by: Vaibhav Forbes M.D. on 02/20/2019 at 20:50 Approved by: Vaibhav Forbes M.D. on 02/20/2019 at 20:57 Venous US: Radiologist's impression: [place] [address] Ultrasound Report Signed Patient: Sabrina Sanchez CMR#: [id number] : 1985Acct:[id number] Age/Sex: 33 / FDate of Service: 02/20/19 Loc: ED Accession Number: [id number] Procedure: US periph venous low extrem lt Ordering Provider: Tonny Osborne D.O. PROCEDURE: US PERIPH VENOUS LOW EXTREM LT INDICATIONS: PAIN, SWELLING, POST OPERATIVE TECHNIQUE: Real-time imaging, as well as color and pulse Doppler interrogation, were performed of the lower extremity deep veins from the inguinal ligament to the popliteal fossa. COMPARISON: None. FINDINGS: The common femoral, femoral and popliteal veins are normally compressible, and free of intraluminal thrombus. Color and pulse Doppler demonstrate normal phasic intraluminal flow. There is normal augmentation response to distal compression maneuver. IMPRESSION: Negative for deep venous thrombosis of the left lower extremity. Dictated by: Vaibhav Forbes M.D. on 02/20/2019 at 21:15 Approved by: Vaibhav Forbes M.D. on 02/20/2019 at 21:16 [facility] Narrative Medical decision making narrative: 33-year-old female with left medial thigh pain, shortness of breath some chest pressure and near syncope. Given recent surgery DVT and pulmonary embolism were considered but thought less likely given lack of findings on imaging. Patient was given IV fluids and felt much better upon discharge. Anemia, infection were also considered but thought less likely given the above. These findings were discussed with patient, she agrees with discharge plan. She understands return precautions and has been able to verbalize her understanding of return precautions and discharge plan. She has had her questions answered to her apparent satisfaction Discharge Plan Departure Patient Disposition: Home Clinical Impression: Acute pain of left thigh, Near syncope Discharge Date/Time: 02/20/19 23:05 Interventions: ED Discharge Assessment Last Done: 02/20/19 23:05 Activity Restrictions/Additional Instructions: *You have been diagnosed with [acute left thigh pain, near syncope] *What to do: *Take medications as directed *Follow up with your primary care provider in 2-3 days, call for an appointment. Let them know you were seen in the Emergency Department and that we ask that you be seen in follow up *Return to ER if you should have any new, worsening or concerning symptoms Prescriptions: No Action ibuprofen 200 MG tablet 800 mg PO PRN PRN (Reason: Pain, Moderate) Qty: 0 RF: 0 etonogestrel [Nexplanon] 68 mg implant See Rx Instructions .ROUTE .COMPLEX RF: 0 oxycodone-acetaminophen [Percocet] 5-325 mg tablet 1 tab PO Q4-6H PRN (Reason: pain) Qty: 20 RF: 0
--- NOTE | 2019-02-20 20:04 | DI.US.S_ITS ---
PROCEDURE: US PERIPH VENOUS LOW EXTREM LT INDICATIONS: PAIN, SWELLING, POST OPERATIVE TECHNIQUE: Real-time imaging, as well as color and pulse Doppler interrogation, were performed of the lower extremity deep veins from the inguinal ligament to the popliteal fossa. COMPARISON: None. FINDINGS: The common femoral, femoral and popliteal veins are normally compressible, and free of intraluminal thrombus. Color and pulse Doppler demonstrate normal phasic intraluminal flow. There is normal augmentation response to distal compression maneuver. IMPRESSION: Negative for deep venous thrombosis of the left lower extremity. Dictated by: Vaibhav Forbes M.D. on 02/20/2019 at 21:15 Approved by: Vaibhav Forbes M.D. on 02/20/2019 at 21:16
--- NOTE | 2019-02-20 20:04 | DI.CT.S_ITS ---
PROCEDURE: CT ANGIO CHEST PE PROTOCOL INDICATIONS: CP, SOB, near syncope. post op, smoker, on birthcontrol TECHNIQUE: After the administration of intravenous contrast, 2 mm thick sections acquired from the pulmonary apices to the posterior costophrenic angles. 3-dimensional maximum intensity projection (MIP) coronal and sagittal reformats were then acquired through the thorax. For radiation dose reduction, the following was used: automated exposure control, adjustment of mA and/or kV according to patient size. COMPARISON: None. FINDINGS: Image quality: Excellent. Pulmonary arteries: Pulmonary arteries are normal in size, and demonstrate no intraluminal filling defects to suggest central pulmonary embolism. Lungs and pleura: No acute airspace disease. No focal consolidation. 5 mm left lower lobe pulmonary nodule seen on image 26, series 5. There is a 4 mm left basilar pulmonary nodule seen on image 36, series 5. There is a 4 mm anterior right lower lobe nodule seen on image 43, series 5. No pleural effusions or pneumothorax. Central and peripheral airways are patent. Mediastinum: Heart size is normal, without pericardial effusion. No mediastinal or hilar adenopathy. Thoracic aorta is normal in caliber and enhancement. Esophagus is normal in caliber, without hiatal hernia. Bones and chest wall: No suspicious bony lesions. Ribs and thoracic spine appear intact throughout. Thyroid gland appears unremarkable. No axillary or supraclavicular adenopathy. Abdomen: Visualized upper abdominal solid organs appear normal in the early arterial phase of enhancement. IMPRESSION: 1. No acute pulmonary emboli or acute cardiopulmonary abnormalities. 2. A few indeterminate noncalcified pulmonary nodules measuring between 4 and 5 mm in size. If the patient is at low risk for malignancy, no follow up imaging is recommended. If the patient is at high risk, consider followup CT in 12 months. Dictated by: Vaibhav Forbes M.D. on 02/20/2019 at 20:50 Approved by: Vaibhav Forbes M.D. on 02/20/2019 at 20:57
[2019-02-20] MEDS: SODIUM CHLORIDE 0.9% 1,000 ML 1000 ML IV (20:16)
--- NOTE | 2019-02-20 20:40 | PC.NURSE ---
pt reports right groin pain that radiates down leg. POS CMS right lower extremits. Pt ambulated into ED with steady gate. Pt reports she is 6 days post op for a laproscopic procedure. Pt not on outpatient thinners S/P surgery.
[2019-02-20 21:11] VITALS: BP 116/65; PULSE 87; RESP 28; O2SAT 99
[2019-02-20 22:30] VITALS: BP 126/75; PULSE 88; RESP 23; O2SAT 97
--- NOTE | 2019-02-23 06:42 | ED_ITS ---
HPI - Chest Pain General Chief Complaint: Chest Pain Stated Complaint: LT Leg Groin to calf - had surgery Mon. Time Seen by Provider: 02/20/19 19:56 Source: patient Mode of arrival: ambulatory Limitations: no limitations History of Present Illness HPI narrative: 33-year-old female nonsmoker with minimal medical history presents with left medial thigh pain in the absence of injury as well as a bit of shortness of breath over the past few days. She feels lightheaded and almost passed out earlier today. Her significant other brought her in for evaluation. The patient recently had a laparoscopic salpingo oophorectomy. She denies any fever or chills. She denies any abdominal pain. She has very minimal pelvic discharge. She denies dysuria, frequency or urgency MD complaint: other Onset (ago): hour(s) Duration: intermittent Onset: during rest Pain location: substernal Quality: aching Relieving factors: nothing Exacerbating factors: nothing Context: recent surgery Associated symptoms: dyspnea and syncope (Near syncope) Treatments prior to arrival chest pain: none Related Data Home Medications Medication Instructions Recorded Confirmed ibuprofen 800 mg PO PRN PRN #0 07/21/17 02/14/19 etonogestrel 68 mg subdermal See Rx Instructions .ROUTE 11/09/18 01/11/19 implant .COMPLEX each Previous Rx's Medication Instructions Recorded oxycodone-acetaminophen [Percocet] 1 tab PO Q4-6H PRN #20 tab 02/14/19 Allergies Allergy/AdvReac Type Severity Reaction Status Date / Time Penicillins [PENICILLINS] Allergy Severe Anaphylaxis Verified 02/14/19 06:59 Review of Systems Constitutional Denies chills, Denies fever(s), Denies lethargy and Denies weakness Eyes Denies change in vision, Denies eye discharge, Denies irritation and Denies loss of vision ENT Ears, Nose, Mouth, and Throat: Denies change in voice, Denies neck pain and Denies sore throat Cardiovascular Denies chest pain, Denies irregular heart rhythm, Reports lightheadedness, Denies palpitations, Reports dyspnea, Denies dyspnea on exertion and Denies orthopnea Respiratory Denies cough, Reports dyspnea, Denies dyspnea on exertion and Denies wheezing Gastrointestinal Gastrointestinal: Denies abdominal pain, Denies change in bowel habits, Denies diarrhea, Denies nausea and Denies vomiting Genitourinary Denies hematuria, Denies flank pain, Denies urinary incontinence and Denies urinary urgency Musculoskeletal Reports muscle cramps and Denies neck pain Integumentary/Breasts Denies pruritus, Denies erythema, Denies rash and Denies wounds Neurologic Denies confusion, Denies loss of vision and Denies weakness Psychiatric Denies anxiety, Denies confusion, Denies depression, Denies homicidal ideation and Denies suicidal ideation Endocrine Denies palpitations Hematologic/Lymphatic Denies easy bruising Allergic/Immunologic Denies wheezing PFSH Medical History Anomalous pulmonary venous return (Acute) Dermoid (Acute) Migraine headache (Acute) Ovarian teratoma (Acute) Seasonal allergies (Acute) Shoulder fracture, left (Acute ~10/2016) Surgical History H/O LEEP (Acute ~2006) Hx of elbow surgery (Acute) Hx laparoscopic cholecystectomy (Resolved) Social History household members: significant other Smoking Status: Current every day smoker Social History household members: significant other Smoking Status: Current every day smoker Exam Narrative Exam Narrative: GENERAL: 33-year-old female resting comfortably though in mild distress HEAD: Atraumatic. Normocephalic. No temporal or scalp tenderness. EYES: Pupils equal round and reactive. Extraocular motions intact. No scleral icterus. No injection or drainage. ENT: Nose without bleeding, purulent drainage or septal hematoma. Throat without erythema, tonsillar hypertrophy or exudate. Uvula midline. Airway patent. NECK: Trachea midline. No JVD or lymphadenopathy. Supple, nontender, no meningeal signs. CARDIOVASCULAR: Regular rate and rhythm without murmurs, gallops, or rubs. RESPIRATORY: Clear to auscultation. Breath sounds equal bilaterally. No wheezes, rales, or rhonchi. GASTROINTESTINAL: Abdomen soft, non-tender, nondistended. No hepato- splenomegaly, or palpable masses. No guarding. EXTREMITIES: Medial thigh report of tenderness but no warmth, erythema or induration. No clubbing, cyanosis, or edema. No joint tenderness, effusion, or edema noted. BACK: Nontender without deformity or crepitance. No flank tenderness. NEURO: AOx3. SKIN: No rash or erythema. Initial Vital Signs Initial Vital Signs: Vital Signs Temperature 98.5 F 02/20/19 19:04 Pulse Rate 101 H 02/20/19 19:04 Respiratory Rate 20 02/20/19 19:04 Blood Pressure 131/75 02/20/19 19:04 Pulse Oximetry 100 02/20/19 19:04 Course Orders Ordered: Discontinued Medications Sodium Chloride (Normal Saline 0.9%) 1,000 mls @ 1,000 mls/hr IV BOLUS ONE Stop: 02/20/19 21:05 Last Infusion: 02/20/19 21:58 Dose: 0 mls/hr Admin: 02/20/19 20:16 Dose: 1,000 mls/hr Vital Signs - 8 hr 02/20/19 19:04 Temperature 98.5 F Pulse Rate 101 H Respiratory Rate 20 Blood Pressure 131/75 Pulse Oximetry 100 MDM - Chest Pain Lab Data Result diagrams: 02/20/19 19:22 02/20/19 19:22 Lab Results 02/20/19 02/20/19 02/20/19 Range/Units 19:22 19:22 19:22 WBC 11.5 H (4.5-11.0) X10^3/uL RBC 4.82 (4.0-5.2) X10^6/uL Hgb 14.2 (12.0-16.0) g/dL Hct 43.7 (36-46) % MCV 90.8 (80-100) fL MCH 29.5 (26-34) PG MCHC 32.5 (30-36) % RDW 14.1 (11.6-14.8) % Plt Count 296 (150-400) X10^3/uL Neut % (Auto) 67.2 (50-75) % Lymph % (Auto) 25.9 (25-40) % [place] % (Auto) 5.5 (3-14) % Eos % (Auto) 0.9 L (2-4) % Baso % (Auto) 0.5 (0-2) % Neut # (Auto) 7700 H (8173-0819) /uL Lymph # (Auto) 3000 (0189-9092) /uL [place] # (Auto) 600 (0-900) /uL Eos # (Auto) 100 (0-450) /uL Baso # (Auto) 100 (0-100) /uL D-Dimer 327 H (<230) ng/mL Sodium 141 (137-145) mmol/L Potassium 3.8 (3.4-5.1) mmol/L Chloride 103 (98-107) mmol/L Carbon Dioxide 25 (22-32) mmol/L BUN 19 H (7-17) mg/dL Creatinine 0.90 (0.52-1.04) mg/dL Estimated GFR > 60.0 (>60) mL/min BUN/Creatinine Ratio 21.1 (6-22) Glucose 126 H (70-100) mg/dL Calcium 9.3 (8.4-10.2) mg/dL Total Bilirubin 0.3 (0.2-1.3) mg/dL AST 16 (14-36) IU/L ALT 19 (9-52) IU/L Alkaline Phosphatase 116 (38-126) U/L Total Creatine Kinase 39 (30-135) U/L CK-MB (CK-2) TNP CK-MB (CK-2) Rel Index TNP Troponin I < 0.012 (0.01-0.034) ng/mL Total Protein 8.1 (6.3-8.2) g/dL Albumin 4.5 (3.5-5.0) g/dL Globulin 3.6 (1.7-4.1) g/dL Albumin/Globulin Ratio 1.3 (1.0-2.8) Imaging Data CT scan - chest: Radiologist's impression: [place] [address] CT Scan Report Signed Patient: Sabrina Sanchez CMR#: [id number] : 1985Acct:[id number] Age/Sex: 33 / FDate of Service: 02/20/19 Loc: ED Accession Number: [id number] Procedure: CT angio chest PE protocol Ordering Provider: Tonny Osborne D.O. PROCEDURE: CT ANGIO CHEST PE PROTOCOL INDICATIONS: CP, SOB, near syncope. post op, smoker, on birthcontrol TECHNIQUE: After the administration of intravenous contrast, 2 mm thick sections acquired from the pulmonary apices to the posterior costophrenic angles. 3-dimensional maximum intensity projection (MIP) coronal and sagittal reformats were then acquired through the thorax. For radiation dose reduction, the following was used: automated exposure control, adjustment of mA and/or kV according to patient size. COMPARISON: None. FINDINGS: Image quality: Excellent. Pulmonary arteries: Pulmonary arteries are normal in size, and demonstrate no intraluminal filling defects to suggest central pulmonary embolism. Lungs and pleura: No acute airspace disease. No focal consolidation. 5 mm left lower lobe pulmonary nodule seen on image 26, series 5. There is a 4 mm left basilar p ulmonary nodule seen on image 36, series 5. There is a 4 mm anterior right lower lobe nodule seen on image 43, series 5. No pleural effusions or pneumothorax. Central and peripheral airways are patent. Mediastinum: Heart size is normal, without pericardial effusion. No mediastinal or hilar adenopathy. Thoracic aorta is normal in caliber and enhancement. Esophagus is normal in caliber, without hiatal hernia. Bones and chest wall: No suspicious bony lesions. Ribs and thoracic spine appear intact throughout. Thyroid gland appears unremarkable. No axillary or supraclavicular adenopathy. Abdomen: Visualized upper abdominal solid organs appear normal in the early arterial phase of enhancement. IMPRESSION: 1. No acute pulmonary emboli or acute cardiopulmonary abnormalities. 2. A few indeterminate noncalcified pulmonary nodules measuring between 4 and 5 mm in size. If the patient is at low risk for malignancy, no follow up imaging is recommended. If the patient is at high risk, consider followup CT in 12 months. Dictated by: Vaibhav Forbes M.D. on 02/20/2019 at 20:50 Approved by: Vaibhav Forbes M.D. on 02/20/2019 at 20:57 Venous US: Radiologist's impression: [address] [address] Ultrasound Report Signed Patient: Sabrina Sanchez CMR#: [id number] : 1985Acct:[id number] Age/Sex: 33 / FDate of Service: 02/20/19 Loc: ED Accession Number: [id number] Procedure: US periph venous low extrem lt Ordering Provider: Tonny Osborne D.O. PROCEDURE: US PERIPH VENOUS LOW EXTREM LT INDICATIONS: PAIN, SWELLING, POST OPERATIVE TECHNIQUE: Real-time imaging, as well as color and pulse Doppler interrogation, were performed of the lower extremity deep veins from the inguinal ligament to the popliteal fossa. COMPARISON: None. FINDINGS: The common femoral, femoral and popliteal veins are normally compressible, and free of intraluminal thrombus. Color and pulse Doppler demonstrate normal phasic intraluminal flow. There is normal augmentation response to distal compression maneuver. IMPRESSION: Negative for deep venous thrombosis of the left lower extremity. Dictated by: Vaibhav Forbes M.D. on 02/20/2019 at 21:15 Approved by: Vaibhav Forbes M.D. on 02/20/2019 at 21:16 [facility] Narrative Medical decision making narrative: 33-year-old female with left medial thigh pain, shortness of breath some chest pressure and near syncope. Given recent surgery DVT and pulmonary embolism were considered but thought less likely given lack of findings on imaging. Patient was given IV fluids and felt much better upon discharge. Anemia, infection were also considered but thought less likely given the above. These findings were discussed with patient, she agrees with discharge plan. She understands return precautions and has been able to verbalize her understanding of return precautions and discharge plan. She has had her questions answered to her apparent satisfaction Discharge Plan Departure Patient Disposition: Home Clinical Impression: Acute pain of left thigh, Near syncope Discharge Date/Time: 02/20/19 23:05 Interventions: ED Discharge Assessment Last Done: 02/20/19 23:05 Activity Restrictions/Additional Instructions: *You have been diagnosed with [acute left thigh pain, near syncope] *What to do: *Take medications as directed *Follow up with your primary care provider in 2-3 days, call for an appointment. Let them know you were seen in the Emergency Department and that we ask that you be seen in follow up *Return to ER if you should have any new, worsening or concerning symptoms Prescriptions: No Action ibuprofen 200 MG tablet 800 mg PO PRN PRN (Reason: Pain, Moderate) Qty: 0 RF: 0 etonogestrel [Nexplanon] 68 mg implant See Rx Instructions .ROUTE .COMPLEX RF: 0 oxycodone-acetaminophen [Percocet] 5-325 mg tablet 1 tab PO Q4-6H PRN (Reason: pain) Qty: 20 RF: 0
== END 2019-02-20 23:05 | disposition home or self-care (01) ==
PROVIDERS: Emergency Medicine; Emergency Provider Emergency Medicine
DX: M79.652 Pain in left thigh (principal); R55 Syncope and collapse; R07.9 Chest pain, unspecified; R06.02 Shortness of breath; Z98.890 Other specified postprocedural states
CPT/HCPCS: 71045; 71275; 80053; 82550; 84484; 85025; 85379; 93005; 93041; 93971; 96360; 96361; 99283; 99284; Q9967

== ENCOUNTER → 2019-05-29 13:03 | Outpatient (CLI) | payer OTHER, MEDICAID, SELFPAY | PROVIDERS: Visit Provider Physician Assistant | DX: J02.9 Acute pharyngitis, unspecified (principal) | CPT/HCPCS: 87070 ==

== ENCOUNTER 2019-07-04 19:33 | Emergency (ER) | payer OTHER, SELFPAY ==
[2019-07-04 19:38] VITALS: BP 156/102; PULSE 102; RESP 18; TEMP 36.7; O2SAT 100
[2019-07-04 21:30] VITALS: BP 125/81; PULSE 91; RESP 18; O2SAT 100
[2019-07-04] MEDS: SODIUM CHLORIDE 0.9% 1,000 ML 1000 ML IV (21:50)
[2019-07-04 21:59] LABS: Add Manual Diff / Slide Review NO; Basophils Absolute Auto 100 /uL (0-100); Basophils Percent Auto 0.6 % (0-2); Eosinophils Absolute Auto 100 /uL (0-450); Eosinophils Percent Auto 0.6 % (2-4); Hematocrit 38.6 % (36-46); Hemoglobin 13.2 g/dL (12.0-16.0); Lymphocytes Absolute Auto 2400 /uL (1100-4500); Lymphocytes Percent Auto 25.8 % (25-40); Mean Corpuscular HGB Conc 34.2 % (30-36); Mean Corpuscular Hemoglobin 30.5 PG (26-34); Mean Corpuscular Volume 89.2 fL (80-100); Monocytes Absolute Auto 600 /uL (0-900); Monocytes Percent Auto 6.9 % (3-14); Neutrophils Absolute Auto 6100 /uL (1500-7000); Neutrophils Percent Auto 66.1 % (50-75); Platelet Count 278 X10^3/uL (150-400); Red Blood Cell Count 4.33 X10^6/uL (4.0-5.2); Red Cell Distribution Width 13.3 % (11.6-14.8); White Blood Cell Count 9.2 X10^3/uL (4.5-11.0)
[2019-07-04 22:05] LABS: Alanine Aminotransferase 21 IU/L (9-52); Albumin Globulin Ratio 1.2 (1.0-2.8); Alkaline Phosphatase 85 U/L (38-126); Aspartate Aminotransferase 20 IU/L (14-36); Bilirubin Total 0.4 mg/dL (0.2-1.3); Blood Urea Nitrogen 16 mg/dL (7-17); Carbon Dioxide 26 mmol/L (22-32); Chloride 104 mmol/L (98-107); Estimated Glomerular Filt Rate > 60.0 mL/min (>60); Globulin 3.3 g/dL (1.7-4.1); Glucose 107 mg/dL (70-100); HEMOLYSIS < 15 (0-50); Lipase 75 U/L (23-300); Potassium 3.7 mmol/L (3.4-5.1); Sodium 140 mmol/L (137-145); Total Protein 7.3 g/dL (6.3-8.2)
[2019-07-04] MEDS: ONDANSETRON 4 MG/2 ML INJ IV (22:06)
[2019-07-04 22:30] VITALS: BP 120/75; PULSE 73; RESP 17; O2SAT 98
--- NOTE | 2019-07-04 22:59 | ED_ITS ---
HPI - Abdominal Pain General Chief Complaint: Abdominal Pain Stated Complaint: loosing control over her bowels since sat Time Seen by Provider: 07/04/19 22:14 Source: patient Mode of arrival: ambulatory Limitations: no limitations History of Present Illness HPI narrative: Patient comes emergency department complaining diarrhea for the last 3 days. She states that she normally has issues with constipation, and aquiles t she was constipated and suddenly felt something ?pop?. She states she had a lot of pain, but was able to have a bowel movement and felt much better afterward. However, she noticed later in the day that she was having stool incontinence, with a large amount of mucus, as well as some diarrhea. Patient also noticed an orange discoloration to her stool. Patient states that she has noticed some small chunks of softer, formed stool that come out, as well. Patient denies any mamta blood. She states she has been nauseated and has had some vomiting. She denies sick contacts. Patient states that she does not feel the urge to defecate, but that the stool just comes out. She states she has had cramping and burning in her abdomen. She states that when she eats, she very shortly thereafter has to have a bowel movement. No other complaints at this time. Patient states she has had both fallopian tubes, as well as her right ovary removed. She has also had her gallbladder removed. No recent travel or camping. No recent antibiotics. Patient was on stool softeners for the constipation, prior to the onset of diarrhea. Related Data Previous Rx's Medication Instructions Recorded ondansetron 4 mg PO Q6H PRN #10 tab 07/05/19 Allergies Allergy/AdvReac Type Severity Reaction Status Date / Time Penicillins [PENICILLINS] Allergy Severe Anaphylaxis Verified 07/04/19 19:40 Review of Systems Constitutional Constitutional: Denies chills, Denies fatigue, Denies fever(s), Denies frequent falls, Denies lethargy and Denies weakness Eyes Eyes: Denies change in vision, Denies eye discharge, Denies irritation and Denies loss of vision ENT Ears, Nose, Mouth, and Throat: Denies change in voice, Denies dizziness, Denies neck pain, Denies sore throat and Denies throat swelling Cardiovascular Cardiovascular: Denies chest pain, Denies irregular heart rhythm, Denies lightheadedness, Denies palpitations, Denies dyspnea, Denies dyspnea on exertion and Denies orthopnea Respiratory Respiratory: Denies cough, Denies dyspnea, Denies dyspnea on exertion and Denies wheezing Gastrointestinal Gastrointestinal: Reports abdominal pain, Reports change in bowel habits, Reports diarrhea, Reports nausea and Reports vomiting Genitourinary Genitourinary: Denies hematuria, Denies flank pain, Denies urinary incontinence and Denies urinary urgency Musculoskeletal Musculoskeletal: Denies back pain, Denies muscle weakness, Denies neck pain, Denies numbness and Denies tingling Integumentary/Breasts Skin/Breast: Denies pruritus, Denies erythema, Denies rash and Denies wounds Neurologic Neurologic: Denies behavioral changes, Denies confusion, Denies dizziness, Denies frequent falls, Denies loss of vision, Denies numbness, Denies tingling and Denies weakness Psychiatric Psychiatric: Denies anxiety, Denies behavioral changes, Denies confusion, Denies depression, Denies homicidal ideation and Denies suicidal ideation Endocrine Endocrine: Denies fatigue, Denies flushing and Denies palpitations Hematologic/Lymphatic Hematologic/Lymphatic: Denies easy bruising Allergic/Immunologic Allergic/Immunologic: Denies urticaria, Denies throat swelling and Denies wheezing PFSH Medical History Anomalous pulmonary venous return (Acute) Dermoid (Acute) Migraine headache (Acute) Ovarian teratoma (Acute) Seasonal allergies (Acute) Shoulder fracture, left (Acute ~10/2016) Surgical History H/O LEEP (Acute ~2006) Hx laparoscopic cholecystectomy (Resolved) Hx of elbow surgery (Acute) S/P laparoscopy (Resolved ~02/14/19) Social History household members: significant other Smoking Status: Current every day smoker alcohol intake: current Social History household members: significant other Smoking Status: Current every day smoker alcohol intake: current Exam Initial Vital Signs Initial Vital Signs: Vital Signs Temperature 98.1 F 07/04/19 19:38 Pulse Rate 102 H 07/04/19 19:38 Respiratory Rate 18 07/04/19 19:38 Blood Pressure 156/102 H 07/04/19 19:38 Pulse Oximetry 100 07/04/19 19:38 Const General: cooperative and well developed Nutritional Appearance: well nourished Orientation: alert, awake, oriented x3 and not confused [facility] Head: normocephalic and atraumatic Ears: external ears normal Nose: external nose normal and No nasal discharge Face and sinus: face symmetric and No dry mucous membranes Mouth: oral mucosae normal and moist mucous membranes Teeth and gingiva: dentition normal Eyes General: appearance normal, both eyes and all related structures Eyelids: eyelids normal Conjunctivae: conjunctivae normal Sclera: sclerae normal Pupils: PERRL EOM: EOM intact bilaterally Neck Neck: normal visual inspection, trachea midline, No lymphadenopathy, No midline deformity and No JVD Lymphatic: No lymphedema Chest Chest: normal inspection of the chest Resp Effort & Inspection: normal respiratory effort, able to speak in complete sente nces, no respiratory distress and no use of accessory muscles Auscultation: clear to auscultation bilaterally, no rales, no rhonchi and no wheezes Cardio Rate: regular rate Rhythm: regular rhythm Heart Sounds: no click, no gallops, no murmurs and no rubs Pulses: normal peripheral pulses GI Inspection: non-distended Palpation: soft, no hepatosplenomegaly, No guarding, No pulsatile mass and No tender Rectal Exam: normal sphincter tone, No fissure, No hemorrhoids and No tenderness Back/Spine/Pelvis Back: No CVA tenderness Cervical Spine: cervical ROM normal and No pain with cervical ROM Thoracic/Lumbar Spine: thoracic and lumbar spine normal to inspection Skin General: no rashes or lesions noted, No jaundice and No petechiae Neuro General: alert, oriented x3, gait normal and no focal motor deficits Speech: speech normal Extrem General: full ROM, no clubbing, cyanosis or edema, no pedal edema and no calf tenderness Psych Appearance: well kempt Mental Status: mental status grossly normal Attitude: cooperative Thought Content: normal and suicidality Judgment: judgment good Course Course Course Narrative: Patient was worked up with labs and given a L normal saline bolus and Zofran. Workup was unremarkable. I discussed with the patient that she has normal sphincter tone, and most likely, has gastroenteritis. We have discussed home management of the symptoms, as well as the usual indications for return. Patient prefers not to use Imodium, as this makes her constipated. She would rather simply use Zofran for nausea, which also does have a constipating side effect. Orders Ordered: Discontinued Medications Sodium Chloride (Normal Saline 0.9%) 1,000 mls @ 1,000 mls/hr IV BOLUS ONE Stop: 07/04/19 22:27 Last Infusion: 07/04/19 23:20 Dose: 0 mls/hr Documented by: Admin: 07/04/19 21:50 Dose: 1,000 mls/hr Documented by: VERÓNICA Ondansetron HCl (Zofran) 4 mg IV NOW ONE Stop: 07/04/19 21:56 Last Admin: 07/04/19 22:06 Dose: 4 mg Documented by: VERÓNICA Ondansetron HCl (Zofran Odt Prepack) 1 bottle MISC SEEINSTR ONE Stop: 07/05/19 00:08 Last Admin: 07/05/19 00:34 Dose: 1 bottle Documented by: VERÓNICA Vital Signs Vital signs: Vital Signs - 8 hr 07/04/19 19:38 07/04/19 21:30 07/04/19 22:30 Temperature 98.1 F Pulse Rate 102 H 91 H 73 Respiratory Rate 18 18 17 Blood Pressure 156/102 H Blood Pressure [Left Arm] 125/81 120/75 Pulse Oximetry 100 100 98 MDM - Abdominal Pain Medical Records Attestation: I reviewed the patient's medical records. Lab Data Attestation: I reviewed the patient's lab results. Result diagrams: 07/04/19 21:47 07/04/19 21:47 Labs: Lab Results 07/04/19 07/04/19 07/04/19 Range/Units 21:47 21:47 23:25 WBC 9.2 (4.5-11.0) X10^3/uL RBC 4.33 (4.0-5.2) X10^6/uL Hgb 13.2 (12.0-16.0) g/dL Hct 38.6 (36-46) % MCV 89.2 (80-100) fL MCH 30.5 (26-34) PG MCHC 34.2 (30-36) % RDW 13.3 (11.6-14.8) % Plt Count 278 (150-400) X10^3/uL Neut % (Auto) 66.1 (50-75) % Lymph % (Auto) 25.8 (25-40) % [place] % (Auto) 6.9 (3-14) % Eos % (Auto) 0.6 L (2-4) % Baso % (Auto) 0.6 (0-2) % Neut # (Auto) 6100 (1570-3176) /uL Lymph # (Auto) 2400 (8066-5333) /uL [place] # (Auto) 600 (0-900) /uL Eos # (Auto) 100 (0-450) /uL Baso # (Auto) 100 (0-100) /uL Sodium 140 (137-145) mmol/L Potassium 3.7 (3.4-5.1) mmol/L Chloride 104 (98-107) mmol/L Carbon Dioxide 26 (22-32) mmol/L BUN 16 (7-17) mg/dL Creatinine 0.80 (0.52-1.04) mg/dL Estimated GFR > 60.0 (>60) mL/min BUN/Creatinine Ratio 20.0 (6-22) Glucose 107 H (70-100) mg/dL Calcium 9.0 (8.4-10.2) mg/dL Total Bilirubin 0.4 (0.2-1.3) mg/dL AST 20 (14-36) IU/L ALT 21 (9-52) IU/L Alkaline Phosphatase 85 (38-126) U/L Total Protein 7.3 (6.3-8.2) g/dL Albumin 4.0 (3.5-5.0) g/dL Globulin 3.3 (1.7-4.1) g/dL Albumin/Globulin Ratio 1.2 (1.0-2.8) Lipase 75 (23-300) U/L Urine RBC None seen (0-5/HPF) Urine WBC None seen (0-5/HPF) Ur Squamous Epith Cells 1-5 /hpf (0-5/HPF) Urine Bacteria Moderate (10-30) H (None) Ur Culture Indicated? Cult not indicated Point of care testing: Urine Dip Bedside Urine Glucose Negative Bedside Urine Bilirubin - Negative Bedside Urine Ketone +/- 5 Urine Specific [place] 1.020 Bedside Urine Occult Blood - Negative Bedside Urine pH 6.0 Bedside Urine Protein +/- 15 Bedside Urine Urobilinogen +/- 1mg Bedside Urine Nitrite - Negative Bedside Urine Leukocytes - Negative Esterase Discharge Plan Departure Patient Disposition: Home Clinical Impression: Gastroenteritis Discharge Date/Time: 07/05/19 00:41 Instructions: DI for Viral Gastroenteritis -- Adult Activity Restrictions/Additional Instructions: Your labs look good. There is no evidence a more serious condition causing your symptoms. Your anal sphincter muscle tone is good, and there is no evidence of any condition that should cause you to be incontinent of stool. You may take the Zofran, as needed for nausea. Please follow up with your primary care physician at the end of the week if your symptoms have not improved. Eat only simple starches, such as Saltines, Ramen noodles, and white rice until your diarrhea is better. [facility] [place] Prescriptions: New ondansetron 4 mg tablet,disintegrating 4 mg PO Q6H PRN (Reason: nausea and vomiting) Qty: 10 RF: 0 Referrals: [facility] [Provider Group]
[2019-07-04 23:51] LABS: RBC Urine None Seen (0-5/HPF); WBC Urine None Seen (0-5/HPF)
[2019-07-05 00:05] LABS: Bacteria Urine Moderate (10-30); Culture Indicated Urine Cult Not Indicated; Squamous Epithelial Cell Urine 1-5 /HPF (0-5/HPF)
[2019-07-05 00:34] VITALS: BP 116/75; PULSE 80; RESP 16; O2SAT 98
[2019-07-05] MEDS: ONDANSETRON 4 MG ODT PREPACK 1 BOTTLE MISC (00:34)
== END 2019-07-05 00:41 | disposition home or self-care (01) ==
PROVIDERS: Emergency Provider Emergency Medicine
DX: K52.9 Noninfective gastroenteritis and colitis, unspecified (principal)
CPT/HCPCS: 36591; 80053; 81003; 81015; 83690; 85025; 96361; 96374; 99283; 99284; J2405